=== PATIENT | female | born 1985 | race Caucasian/White ===

== ENCOUNTER 2016-03-23 13:03 | Emergency (ER) | payer MEDICAID | END 2016-03-23 13:05 | disposition left against medical advice (07) | LOC: ER 13:03 | DX: Z53.21 Procedure and treatment not carried out due to patient leaving prior to being seen by health care provider (principal) ==

== ENCOUNTER 2016-05-15 09:39 | Emergency (ER) | payer MEDICAID ==
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
--- NOTE | 2016-05-15 12:52 | EKG REPORT ---
SEVERITY:- NORMAL ECG - SINUS RHYTHM : Confirmed by: Ehsan Hickey MD 15-May-2016 12:51:00
[2016-05-15 13:46] VITALS: BP 106/60
--- NOTE | 2016-05-15 16:46 | PSYCHOLOGICAL NOTE ---
Psych Note - Psych Note Psych Note: The patient is a 31-year-old female, past medical history cocaine and THC abuse , seizures, bipolar, presents by ambulance because she had a brief episode of feeling lightheaded. She said that she has not eaten anything because she did not have access to food for the past 2 days. She was trying to get to [place] and thought that by coming by EMS to [place], she has a better chance of making it to [place]. She denies seizure activity, chest pain, palpitations, syncope, nausea, vomiting, abdominal pain, headache, blurry vision or fevers. Patient states she is not doing well because she is suicidal. When asked what her plan is patient states "I'm thinking about jumping off the bridge." Patient states she is thinking of this because she is homeless and has nowhere to go patient states she's been banned from [facility] because she broke curfew. She further explained she broke curfew by owing out to smoke cigarettes. Patient states that she knew leaving with causes but shows to smoke a cigarette anyway. Patient continued to state that she has been homeless for 3 days because her friend kicked her out. When asked what her friends kicked her out she stated "I guess not picking up after myself." She continued disclosed that she has prior attempts when she was [age] by overdosing on OxyContin. When asked what substances she uses now she states marijuana and crack; last time she smoked was yesterday. When asked how she got money she stated it was "fronted to her." She stated she will not be able to pay for it so "they will just go without getting paid." Clinician provided resource list for shelters patient stated she wanted to go [facility] and requested a cab. Patient is alert and orientated to person place time and circumstance. Mood is euthymic with congruent affect. Patient endorses suicidal ideation stating that she was "thinking about jumping off the bridge" however intense is questionable. Patient denies homicidal ideation. Patient denies auditory and visual hallucinations; no delusions are noted. Thought process is organized and linear. Thought content is focused on secondary gain of seeking custodial. Conversational speech was within normal rate tone and prosody. Eye contact was fair. Intellectual abilities appear to be low average range. Attention and concentration are fair. Insight, judgment, impulse control are poor. 292.9 (F12.99) unspecified cannabis-related disorder 292.9 (F14.99) unspecified stimulant related disorder; cocaine V6 0.0 (Z59.0) homelessness Impression\\plan: Patient is psychiatrically cleared for discharge. Patient is attempting to endorse suicidal ideation however plan identified sitting with patient prior intent is questionable. Patient came in to [facility] with other complaints and disclose she is attempting to [place] he needed a ride such as EMS to [facility] upon learning of possible discharge patient randomly stated to staff member she thinking of killing herself. Patient is chronically homeless and has had long history of substance abuse. When patient was provided resource and transportation to custodial patient wanted to leave. Patient has shown history of choosing homelessness as using to smoke a cigarette instead of staying in homeless shelters. Patient demonstrated coming in to [facility] for secondary gain of custodial. Patient's psychiatric appear for discharge attending physician is in agreement medications and disposition.
== END 2016-05-15 13:48 | disposition home or self-care (01) ==
LOC: ER 09:39
DX: R42 Dizziness and giddiness (principal); F17.210 Nicotine dependence, cigarettes, uncomplicated
CPT/HCPCS: 81025; 82962; 93005; 93010; 99285

== ENCOUNTER 2016-05-15 16:26 | Emergency (ER) | payer MEDICAID ==
[2016-05-15 16:37] VITALS: BP 96/57
== END 2016-05-15 16:45 | disposition left against medical advice (07) ==
LOC: ER 16:26
DX: Z53.9 Procedure and treatment not carried out, unspecified reason (principal); R45.851 Suicidal ideations

== ENCOUNTER 2016-08-14 10:58 | Emergency (ER) | payer MEDICAID, OTHER ==
[2016-08-14 11:03] VITALS: BP 102/65
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
[2016-08-14 12:28] LABS: ALANINE AMINOTRANSFERASE 40 U/L (9-52); ALBUMIN 4.2 g/dL (3.5-5.0); ALKALINE PHOSPHATASE 56 U/L (38-126); ANION GAP 7 (5-19); ASPARTATE AMINO TRANSFERASE 27 U/L (14-36); BILIRUBIN,DIRECT 0.3 mg/dL (0.0-0.4); BILIRUBIN,TOTAL 0.6 mg/dL (0.2-1.3); BLOOD UREA NITROGEN 21 mg/dL (7-20); CALCIUM 9.3 mg/dL (8.4-10.2); CARBON DIOXIDE 29 mmol/L (22-30); CHLORIDE 105 mmol/L (98-107); CREATININE RESULT 0.48 mg/dL (0.52-1.25); GLUCOSE 79 mg/dL (75-110); POTASSIUM 4.6 mmol/L (3.6-5.0); SODIUM 141.4 mmol/L (137-145); TOTAL PROTEIN 7.3 g/dL (6.3-8.2)
[2016-08-14 12:29] LABS: ALCOHOL < 10 mg/dL (NONE DETECTED)
[2016-08-14 12:30] LABS: ABSOLUTE BASOPHILS # (AUTO) 0.1 10^3/uL (0.0-0.2); ABSOLUTE EOSINOPHILS # (AUTO) 0.4 10^3/uL (0.0-0.6); ABSOLUTE LYMPHOCYTES (AUTO) 3.5 10^3/uL (0.5-4.7); BASOPHILS % (AUTO) 1.2 % (0-2); EOSINOPHILS % (AUTO) 4.5 % (0-6); HEMATOCRIT 42.8 % (36.0-47.0); HEMOGLOBIN 14.1 g/dL (12.0-15.5); HGB HCT DIFFERENCE -0.5; LYMPHOCYTES % (AUTO) 34.5 % (13-45); MEAN CORPUSCULAR HEMOGLOBIN 29.6 pg (27.0-33.4); MEAN CORPUSCULAR VOLUME 90 fl (80-97); MONOCYTES % (AUTO) 9.7 % (3-13); RED BLOOD COUNT 4.76 10^6/uL (3.72-5.28); RED CELL DISTRIBUTION WIDTH 13.6 % (11.5-14.0); SEGMENTED NEUTROPHILS % (AUTO) 50.1 % (42-78)
--- NOTE | 2016-08-14 14:24 | PSYCHOLOGICAL NOTE ---
Psych Note - Psych Note Psych Note: Pt presented to ED with suicidal ideation. Pt took 10 tylenol last night in hopes of committing suicide. Pt stated " I planned to take 30 more tylenol and if that didn't work I was going to walk into the street." The pt then stated that "I only said I was going to take that much medication to get a psychiatric evaluation. I am not suicidal anymore." Pt has a hx of bipolar, OCD, ADHD, aspergers, epilepsy and hemophilia. Pt is homeless. Pt is in contact with family. Pt stated that she has been treated for MRSA in the past two years and [facility] and was told that it was in her system. Pt went to [facility] and was deemed suicidal by the socially responsible investment adviser. Staff member brought her to the ER when she found out that she had overdosed on tylenol and because she is not currently on her regular medications. Patient disclosed that she has been trying to "kill herself for the last 30 days." She continued disclosed that she "tried to kill myself by stabbing myself and the heart but then dropped the knife in fear." get my mind might get that patient states that she needs to go inpatient. When clinician explained that she did not meet IVC criteria and that the best course of action for the patient would be receiving therapeutic services or outpatient the patient became angry. She stated that she needed to go inpatient. She was homeless. she continued to state that every time she comes in she never received any assistance. Clinician asked if patient had therapeutic services out in the community, patient denied having outpatient services. Clinician explained that patient needed outpatient services patient refused. Clinician asked how inpatient services would assist the patient if she refused to follow- up with outpatient services after. Patient stated that if she was not going to get inpatient she wants a ride to her friend's house. When it was explained she would not be able to get a ride to her friend's home, the patient became very belligerent and loud, clinician left patient's room. Patient is alert and orientated to person place time and circumstance. Mood is irritable with congruent affect. Patient endorses suicidal ideation providing multiple ways and allegedly attempting multiple ways however intent is questionable. Patient denies homicidal ideation. Patient denies auditory and visual hallucinations; no delusions are noted. Thought process is organized and linear. Thought content is focused on secondary gain of seeking mcc. Conversational speech was within normal rate tone and prosody. Eye contact was fair. Intellectual abilities appear to be low average range. Attention and concentration are fair. Insight, judgment, impulse control are poor. 292.9 (F12.99) unspecified cannabis-related disorder 292.9 (F14.99) unspecified stimulant related disorder; cocaine 292.9 (F11.99) unspecified Opioid-related disorder V6 0.0 (Z59.0) homelessness Impression\\plan: Patient is psychiatrically cleared for discharge. Patient is attempting to endorse suicidal ideation however plan identified, intent is questionable. Patient requested a ride to her friends home when it was explained outpatient services would be most beneficial for her therapeutic needs. Patient is chronically homeless and has had long history of substance abuse. Patient has shown history of choosing homelessness; patient choose to smoke a cigarette instead of staying in homeless shelters after hours and now is not allowed to stay. Patient demonstrated [facility] for secondary gain of mcc. Patient's psychiatrically clear for discharge; attending physician is in agreement medications and disposition.
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
[2016-08-14 14:29] LABS: APPEARANCE,URINE TURBID; BILIRUBIN,URINE NEGATIVE (NEGATIVE); GLUCOSE, URINE NEGATIVE (NEGATIVE); KETONES,URINE NEGATIVE (NEGATIVE); LEUKOCYTE ESTERASE,URINE NEGATIVE (NEGATIVE); NITRITE,URINE NEGATIVE (NEGATIVE); PROTEIN,URINE NEGATIVE (NEGATIVE); URINE SPECIFIC GRAVITY 1.034; UROBILINOGEN,URINE NEGATIVE mg/dL (<2.0)
[2016-08-14 14:47] LABS: URINE BARBITURATES SCREEN NEGATIVE; URINE METHADONE SCREEN NEGATIVE; URINE OPIATES LOW NEGATIVE; URINE PHENCYCLIDINE SCREEN NEGATIVE
--- NOTE | 2016-08-15 10:43 | EKG REPORT ---
SEVERITY:- BORDERLINE ECG - SINUS RHYTHM BORDERLINE T ABNORMALITIES, ANTERIOR LEADS : Confirmed by: Gloria Starr 15-Aug-2016 10:42:20
== END 2016-08-14 14:40 | disposition home or self-care (01) ==
LOC: ER 10:58
DX: F19.20 Other psychoactive substance dependence, uncomplicated (principal); Z59.0 Homelessness; F31.9 Bipolar disorder, unspecified; F42.9 Obsessive-compulsive disorder, unspecified; F90.9 Attention-deficit hyperactivity disorder, unspecified type; F84.5 Asperger's syndrome; G40.909 Epilepsy, unspecified, not intractable, without status epilepticus; F17.200 Nicotine dependence, unspecified, uncomplicated
CPT/HCPCS: 36415; 80053; 80307; 81001; 81025; 85025; 93005; 93010; 99285

== ENCOUNTER 2016-08-26 19:39 | Emergency (ER) | payer SELFPAY ==
[2016-08-26 19:53] VITALS: BP 114/67
== END 2016-08-26 20:00 | disposition left against medical advice (07) ==
LOC: ER 19:39
DX: Z53.9 Procedure and treatment not carried out, unspecified reason (principal); R11.10 Vomiting, unspecified

== ENCOUNTER 2016-08-27 11:01 | Emergency (ER) | payer MEDICAID ==
[2016-08-27 11:11] VITALS: BP 117/73
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
[2016-08-27 11:48] LABS: ABSOLUTE EOSINOPHILS # (AUTO) 0.4 10^3/uL (0.0-0.6); ABSOLUTE LYMPHOCYTES (AUTO) 2.7 10^3/uL (0.5-4.7); ABSOLUTE MONOCYTES (AUTO) 0.7 10^3/uL (0.1-1.4); ABSOLUTE NEUT (AUTO) 3.7 10^3/uL (1.7-8.2); BASOPHILS % (AUTO) 0.6 % (0-2); EOSINOPHILS % (AUTO) 5.6 % (0-6); HEMATOCRIT 43.9 % (36.0-47.0); HEMOGLOBIN 14.5 g/dL (12.0-15.5); HGB HCT DIFFERENCE -0.4; LYMPHOCYTES % (AUTO) 35.7 % (13-45); MEAN CORPUSCULAR HEMOGLOBIN 29.1 pg (27.0-33.4); MEAN CORPUSCULAR HGB CONC 32.9 g/dL (32.0-36.0); MEAN CORPUSCULAR VOLUME 89 fl (80-97); RED BLOOD COUNT 4.96 10^6/uL (3.72-5.28); RED CELL DISTRIBUTION WIDTH 13.5 % (11.5-14.0); SEGMENTED NEUTROPHILS % (AUTO) 49.1 % (42-78); WHITE BLOOD COUNT 7.6 10^3/uL (4.0-10.5)
[2016-08-27 11:54] LABS: APPEARANCE,URINE SLIGHTLY-CLOUDY; BILIRUBIN,URINE NEGATIVE (NEGATIVE); GLUCOSE, URINE NEGATIVE (NEGATIVE); KETONES,URINE NEGATIVE (NEGATIVE); LEUKOCYTE ESTERASE,URINE NEGATIVE (NEGATIVE); NITRITE,URINE NEGATIVE (NEGATIVE); PROTEIN,URINE NEGATIVE (NEGATIVE); URINE SPECIFIC GRAVITY 1.028; UROBILINOGEN,URINE NEGATIVE mg/dL (<2.0)
[2016-08-27 12:00] LABS: ANION GAP 8 (5-19); BLOOD UREA NITROGEN 18 mg/dL (7-20); CALCIUM 8.9 mg/dL (8.4-10.2); CARBON DIOXIDE 29 mmol/L (22-30); CHLORIDE 104 mmol/L (98-107); CREATININE RESULT 0.57 mg/dL (0.52-1.25); GLUCOSE 75 mg/dL (75-110); POTASSIUM 4.2 mmol/L (3.6-5.0); SODIUM 141.4 mmol/L (137-145)
== END 2016-08-27 11:50 | disposition left against medical advice (07) ==
LOC: ER 11:01
DX: R56.9 Unspecified convulsions (principal); Z53.20 Procedure and treatment not carried out because of patient's decision for unspecified reasons; Z88.0 Allergy status to penicillin; Z91.030 Bee allergy status
CPT/HCPCS: 36415; 80048; 81001; 84703; 85025; 99281

== ENCOUNTER 2016-09-07 23:36 | Emergency (ER) | payer MEDICAID ==
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
== END 2016-09-08 02:05 | disposition home or self-care (01) ==
LOC: ER 23:36
DX: S09.90XA Unspecified injury of head, initial encounter (principal); M79.605 Pain in left leg; W19.XXXA Unspecified fall, initial encounter
CPT/HCPCS: 99283

== ENCOUNTER 2016-09-10 04:26 | Emergency (ER) | payer MEDICAID ==
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
[2016-09-10 08:48] VITALS: BP 113/99
== END 2016-09-10 05:32 | disposition home or self-care (01) ==
LOC: ER 04:26
DX: S80.812A Abrasion, left lower leg, initial encounter (principal); M79.605 Pain in left leg; W22.8XXA Striking against or struck by other objects, initial encounter; Y93.11 Activity, swimming; Y92.828 Other wilderness area as the place of occurrence of the external cause; Z59.0 Homelessness; Z86.14 Personal history of Methicillin resistant Staphylococcus aureus infection
CPT/HCPCS: 99283

== ENCOUNTER 2016-09-12 03:02 | Emergency (ER) | payer MEDICAID ==
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
[2016-09-12 05:36] VITALS: BP 120/57
== END 2016-09-12 05:50 | disposition home or self-care (01) ==
LOC: ER 03:02
DX: R10.9 Unspecified abdominal pain (principal); Y08.89XA Assault by other specified means, initial encounter; Y92.59 Other trade areas as the place of occurrence of the external cause; Z88.0 Allergy status to penicillin; Z91.030 Bee allergy status; Z86.14 Personal history of Methicillin resistant Staphylococcus aureus infection
CPT/HCPCS: 81025; 99284

== ENCOUNTER 2016-09-21 06:11 | Emergency (ER) | payer OTHER, MEDICAID ==
[2016-09-21 06:52] LABS: ABSOLUTE BASOPHILS # (AUTO) 0.1 10^3/uL (0.0-0.2); ABSOLUTE EOSINOPHILS # (AUTO) 0.3 10^3/uL (0.0-0.6); ABSOLUTE LYMPHOCYTES (AUTO) 3.6 10^3/uL (0.5-4.7); ABSOLUTE MONOCYTES (AUTO) 0.8 10^3/uL (0.1-1.4); ABSOLUTE NEUT (AUTO) 4.6 10^3/uL (1.7-8.2); BASOPHILS % (AUTO) 0.5 % (0-2); EOSINOPHILS % (AUTO) 3.7 % (0-6); HEMATOCRIT 41.6 % (36.0-47.0); HEMOGLOBIN 13.4 g/dL (12.0-15.5); HGB HCT DIFFERENCE -1.4; LYMPHOCYTES % (AUTO) 38.4 % (13-45); MEAN CORPUSCULAR HEMOGLOBIN 29.2 pg (27.0-33.4); MEAN CORPUSCULAR HGB CONC 32.3 g/dL (32.0-36.0); MEAN CORPUSCULAR VOLUME 91 fl (80-97); MONOCYTES % (AUTO) 8.3 % (3-13); RED BLOOD COUNT 4.59 10^6/uL (3.72-5.28); RED CELL DISTRIBUTION WIDTH 13.3 % (11.5-14.0); SEGMENTED NEUTROPHILS % (AUTO) 49.1 % (42-78); WHITE BLOOD COUNT 9.3 10^3/uL (4.0-10.5)
[2016-09-21 07:04] LABS: ALANINE AMINOTRANSFERASE 31 U/L (9-52); ALBUMIN 4.1 g/dL (3.5-5.0); ALCOHOL < 10 mg/dL (NONE DETECTED); ALKALINE PHOSPHATASE 53 U/L (38-126); ANION GAP 10 (5-19); ASPARTATE AMINO TRANSFERASE 26 U/L (14-36); BILIRUBIN,DIRECT 0.3 mg/dL (0.0-0.4); BILIRUBIN,TOTAL 0.5 mg/dL (0.2-1.3); BLOOD UREA NITROGEN 21 mg/dL (7-20); CALCIUM 8.6 mg/dL (8.4-10.2); CARBON DIOXIDE 25 mmol/L (22-30); CHLORIDE 106 mmol/L (98-107); CREATININE RESULT 0.58 mg/dL (0.52-1.25); GLUCOSE 85 mg/dL (75-110); POTASSIUM 3.7 mmol/L (3.6-5.0); SODIUM 140.8 mmol/L (137-145); TOTAL PROTEIN 6.9 g/dL (6.3-8.2)
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
--- NOTE | 2016-09-21 08:07 | EKG REPORT ---
SEVERITY:- NORMAL ECG - SINUS RHYTHM. : Confirmed by: Ehsan Hickey MD 21-Sep-2016 08:06:48
[2016-09-21 09:24] LABS: APPEARANCE,URINE SLIGHTLY-CLOUDY; BILIRUBIN,URINE NEGATIVE (NEGATIVE); GLUCOSE, URINE NEGATIVE (NEGATIVE); KETONES,URINE NEGATIVE (NEGATIVE); LEUKOCYTE ESTERASE,URINE NEGATIVE (NEGATIVE); NITRITE,URINE NEGATIVE (NEGATIVE); PROTEIN,URINE NEGATIVE (NEGATIVE); URINE SPECIFIC GRAVITY 1.033; UROBILINOGEN,URINE NEGATIVE mg/dL (<2.0)
[2016-09-21 09:48] LABS: URINE BARBITURATES SCREEN NEGATIVE; URINE METHADONE SCREEN NEGATIVE; URINE OPIATES LOW NEGATIVE; URINE PHENCYCLIDINE SCREEN NEGATIVE
--- NOTE | 2016-09-22 07:04 | ER Document Report ---
Doctor's Note Notes: 09/22/16 07:03 Patient is resting quietly on night has not required any additional medication.
--- NOTE | 2016-09-22 08:34 | ER Document Report ---
Doctor's Note Notes: 09/22/16 08:34 Patient seen and evaluated by me. Vital signs reviewed. Patient states she is currently not suicidal. Awaiting mental health recommendations.
--- NOTE | 2016-09-22 10:26 | ER Document Report ---
Doctor's Note Notes: 09/22/16 10:26 Patient was evaluated by mental health. Per the request, patient is to be discharged. Patient was given appropriate discharge resources.
[2016-09-22 10:43] VITALS: BP 118/71
== END 2016-09-22 10:45 | disposition home or self-care (01) ==
LOC: ER 06:11
DX: F31.9 Bipolar disorder, unspecified (principal); Z59.0 Homelessness; F12.20 Cannabis dependence, uncomplicated
CPT/HCPCS: 36415; 80053; 80307; 81001; 84703; 85025; 93005; 93010; 99285

== ENCOUNTER 2016-09-22 22:06 | Emergency (ER) | payer MEDICAID | END 2016-09-22 22:20 | disposition left against medical advice (07) | LOC: ER 22:06 | DX: Z53.21 Procedure and treatment not carried out due to patient leaving prior to being seen by health care provider (principal) ==

== ENCOUNTER 2016-10-05 03:13 | Emergency (ER) | payer MEDICAID, OTHER ==
[2016-10-05 03:25] VITALS: BP 115/65
== END 2016-10-05 03:57 | disposition left against medical advice (07) ==
LOC: ER 03:13
DX: Z53.21 Procedure and treatment not carried out due to patient leaving prior to being seen by health care provider (principal)

== ENCOUNTER 2016-10-17 00:45 | Emergency (ER) | payer MEDICAID ==
[2016-10-17 00:59] VITALS: BP 145/72
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
== END 2016-10-17 06:27 | disposition home or self-care (01) ==
LOC: ER 00:45
DX: Z59.0 Homelessness (principal); F99 Mental disorder, not otherwise specified; Y09 Assault by unspecified means
CPT/HCPCS: 99284

== ENCOUNTER 2016-10-20 00:05 | Emergency (ER) | payer MEDICAID ==
[2016-10-20 00:21] VITALS: BP 115/65
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
== END 2016-10-20 01:03 | disposition home or self-care (01) ==
LOC: ER 00:05
DX: Z59.0 Homelessness (principal); Y08.89XA Assault by other specified means, initial encounter; F17.200 Nicotine dependence, unspecified, uncomplicated; Z88.0 Allergy status to penicillin; Z91.030 Bee allergy status; Z87.820 Personal history of traumatic brain injury; Z86.14 Personal history of Methicillin resistant Staphylococcus aureus infection
CPT/HCPCS: 99283

== ENCOUNTER 2016-10-23 03:54 | Emergency (ER) | payer MEDICAID ==
[2016-10-23 04:07] VITALS: BP 115/69
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
== END 2016-10-23 04:50 | disposition home or self-care (01) ==
LOC: ER 03:54
DX: M79.671 Pain in right foot (principal); S90.821A Blister (nonthermal), right foot, initial encounter; X58.XXXA Exposure to other specified factors, initial encounter
CPT/HCPCS: 99283

== ENCOUNTER 2016-11-22 00:29 | Emergency (ER) | payer SELFPAY ==
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
--- NOTE | 2016-11-22 01:40 | RADIOLOGY REPORT (SQ) ---
EXAM DESCRIPTION: CHEST PA/LAT COMPLETED DATE/TIME: 11/22/2016 12:53 am REASON FOR STUDY: chest pain COMPARISON: Chest x-ray 02/15/2015. EXAM PARAMETERS: NUMBER OF VIEWS: two views TECHNIQUE: Digital Frontal and Lateral radiographic views of the chest acquired. RADIATION DOSE: NA LIMITATIONS: none FINDINGS: LUNGS AND PLEURA: No consolidation, pneumothorax or pleural effusion. MEDIASTINUM AND HILAR STRUCTURES: No masses or contour abnormalities. HEART AND VASCULAR STRUCTURES: Heart normal size. No evidence for failure. BONES: No acute findings. HARDWARE: None in the chest. IMPRESSION: No acute radiographic finding in the chest. TECHNICAL DOCUMENTATION: JOB ID: [id number] 2010 [employer]- All Rights Reserved
[2016-11-22 03:32] VITALS: BP 122/78
--- NOTE | 2016-11-22 07:58 | EKG REPORT ---
SEVERITY:- BORDERLINE ECG - SINUS RHYTHM BORDERLINE T ABNORMALITIES, ANTERIOR LEADS : Confirmed by: Ehsan Hickey MD 22-Nov-2016 07:57:39
== END 2016-11-22 03:30 | disposition home or self-care (01) ==
LOC: ER 00:29
DX: R07.9 Chest pain, unspecified (principal); Z88.0 Allergy status to penicillin; Z91.030 Bee allergy status; Z59.0 Homelessness; Z87.820 Personal history of traumatic brain injury; Z86.14 Personal history of Methicillin resistant Staphylococcus aureus infection
CPT/HCPCS: 71020; 93005; 93010; 99285

== ENCOUNTER 2016-11-22 17:10 | Emergency (ER) | payer SELFPAY ==
[2016-11-22 19:06] LABS: APPEARANCE,URINE SLIGHTLY-CLOUDY; BILIRUBIN,URINE NEGATIVE (NEGATIVE); GLUCOSE, URINE NEGATIVE (NEGATIVE); KETONES,URINE NEGATIVE (NEGATIVE); LEUKOCYTE ESTERASE,URINE NEGATIVE (NEGATIVE); NITRITE,URINE NEGATIVE (NEGATIVE); PROTEIN,URINE NEGATIVE (NEGATIVE); URINE SPECIFIC GRAVITY 1.015; UROBILINOGEN,URINE NEGATIVE mg/dL (<2.0)
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
[2016-11-22 19:40] VITALS: BP 104/56
== END 2016-11-22 19:40 | disposition home or self-care (01) ==
LOC: ER 17:10
DX: N89.8 Other specified noninflammatory disorders of vagina (principal); Z88.0 Allergy status to penicillin; Z91.030 Bee allergy status
CPT/HCPCS: 81001; 81025; 99285

== ENCOUNTER 2016-11-23 02:56 | Emergency (ER) | payer SELFPAY ==
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
[2016-11-23 03:19] VITALS: BP 117/97
== END 2016-11-23 03:12 | disposition home or self-care (01) ==
LOC: ER 02:56
DX: F41.9 Anxiety disorder, unspecified (principal); F32.9 Major depressive disorder, single episode, unspecified
CPT/HCPCS: 99283

== ENCOUNTER 2016-11-25 22:36 | Emergency (ER) | payer SELFPAY ==
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
[2016-11-25 23:23] LABS: ABSOLUTE BASOPHILS # (AUTO) 0.1 10^3/uL (0.0-0.2); ABSOLUTE EOSINOPHILS # (AUTO) 0.5 10^3/uL (0.0-0.6); ABSOLUTE LYMPHOCYTES (AUTO) 3.4 10^3/uL (0.5-4.7); ABSOLUTE MONOCYTES (AUTO) 0.9 10^3/uL (0.1-1.4); BASOPHILS % (AUTO) 0.8 % (0-2); EOSINOPHILS % (AUTO) 5.7 % (0-6); HEMATOCRIT 37.2 % (36.0-47.0); HEMOGLOBIN 12.7 g/dL (12.0-15.5); HGB HCT DIFFERENCE 0.9; LYMPHOCYTES % (AUTO) 38.6 % (13-45); MEAN CORPUSCULAR HEMOGLOBIN 30.4 pg (27.0-33.4); MEAN CORPUSCULAR VOLUME 89 fl (80-97); MONOCYTES % (AUTO) 9.6 % (3-13); RED BLOOD COUNT 4.17 10^6/uL (3.72-5.28); RED CELL DISTRIBUTION WIDTH 13.7 % (11.5-14.0); SEGMENTED NEUTROPHILS % (AUTO) 45.3 % (42-78); WHITE BLOOD COUNT 8.9 10^3/uL (4.0-10.5)
[2016-11-25 23:42] LABS: ALANINE AMINOTRANSFERASE 24 U/L (9-52); ALBUMIN 3.6 g/dL (3.5-5.0); ALKALINE PHOSPHATASE 49 U/L (38-126); ANION GAP 8 (5-19); ASPARTATE AMINO TRANSFERASE 18 U/L (14-36); BILIRUBIN,DIRECT 0.3 mg/dL (0.0-0.4); BILIRUBIN,TOTAL 0.5 mg/dL (0.2-1.3); BLOOD UREA NITROGEN 13 mg/dL (7-20); CALCIUM 8.8 mg/dL (8.4-10.2); CARBON DIOXIDE 27 mmol/L (22-30); CHLORIDE 106 mmol/L (98-107); CREATININE RESULT 0.59 mg/dL (0.52-1.25); GLUCOSE 88 mg/dL (75-110); POTASSIUM 3.9 mmol/L (3.6-5.0); SODIUM 140.7 mmol/L (137-145); TOTAL PROTEIN 5.8 g/dL (6.3-8.2)
[2016-11-25 23:47] LABS: APPEARANCE,URINE SLIGHTLY-CLOUDY; BILIRUBIN,URINE NEGATIVE (NEGATIVE); GLUCOSE, URINE NEGATIVE (NEGATIVE); KETONES,URINE NEGATIVE (NEGATIVE); LEUKOCYTE ESTERASE,URINE NEGATIVE (NEGATIVE); NITRITE,URINE NEGATIVE (NEGATIVE); PROTEIN,URINE NEGATIVE (NEGATIVE); URINE SPECIFIC GRAVITY 1.031
[2016-11-25 23:48] LABS: ALCOHOL < 10 mg/dL (NONE DETECTED)
[2016-11-25 23:59] LABS: URINE BARBITURATES SCREEN NEGATIVE; URINE METHADONE SCREEN NEGATIVE; URINE OPIATES LOW NEGATIVE; URINE PHENCYCLIDINE SCREEN NEGATIVE
--- NOTE | 2016-11-26 10:07 | ER Document Report ---
Doctor's Note Notes: 11/26/16 10:06 Patient resting comfortably on stretcher, reports feeling much better today and safe to go home, the plan is for the wire mill operator to touch base with patient and ensure for appropriate community outreach and then patient will likely be discharged from the emergency room, chart was reviewed including lab values and vital signs and patient remained stable for discharge once cleared by mental health team Discharge - Discharge Clinical Impression: Depression, Suicidal ideation Condition: Stable Disposition: HOME, SELF-CARE Additional Instructions: DEPRESSION: Your evaluation reveals that you have mental depression. While symptoms may be vague, they often include disturbance of sleep, fatigue, loss of appetite , and general loss of interest in life. While depression may be a side effect of drugs, or a reaction to a major change in your life, many cases have no known cause. If depression is acute, and related to a major loss in your life, you can expect it to clear completely with time. If you have been depressed a long time , are prone to repeated bouts of depression or low mood, or have been thinking of suicide, get help. Depression can be treated with anti-depressant medication and counselling. Long-term depression will often take a few weeks to clear, even with appropriate medication. Follow-up care is important. SUICIDAL IDEATION: Suicidal ideation is a common medical term for thoughts about suicide, which may be as detailed as a formulated plan, without the suicidal act itself. Although most people who undergo suicidal ideation do not commit suicide, some go on to make suicide attempts. The range of suicidal ideation varies greatly from fleeting to detailed planning, role playing, and unsuccessful attempts. While thoughts about suicide are common, most people do not carry out serious actions to commit suicide. Based upon your evaluation and discussion with you, we do not believe you are currently at risk to act upon your thoughts of suicide. You have agreed to return to the Emergency Department, at any time , if you feel inclined to act upon your suicidal thoughts. FOLLOW-UP CARE: You have been instructed to follow up with [facility] or [facility] as a walk in. If you experience worsening or a significant change in your symptoms, notify the physician immediately or return to the Emergency Department at any time for re-evaluation. Referrals: [facility] [Provider Group] - Follow up in 3-5 days
--- NOTE | 2016-11-26 10:14 | EKG REPORT ---
SEVERITY:- BORDERLINE ECG - SINUS RHYTHM BORDERLINE T ABNORMALITIES, ANTERIOR LEADS : Confirmed by: Gloria Starr 26-Nov-2016 10:13:08
[2016-11-26 11:45] VITALS: BP 117/68
== END 2016-11-26 11:57 | disposition home or self-care (01) ==
LOC: ER 22:36
DX: R45.851 Suicidal ideations (principal); F32.9 Major depressive disorder, single episode, unspecified; F31.9 Bipolar disorder, unspecified; F17.200 Nicotine dependence, unspecified, uncomplicated
CPT/HCPCS: 36415; 80053; 80307; 81001; 84703; 85025; 93005; 93010; 99285

== ENCOUNTER 2016-11-27 01:17 | Emergency (ER) | payer SELFPAY ==
[2016-11-27 02:11] VITALS: BP 110/74
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
== END 2016-11-27 06:53 | disposition home or self-care (01) ==
LOC: ER 01:17
DX: F41.9 Anxiety disorder, unspecified (principal); F43.9 Reaction to severe stress, unspecified; F17.210 Nicotine dependence, cigarettes, uncomplicated
CPT/HCPCS: 99284

== ENCOUNTER 2016-12-02 22:03 | Emergency (ER) | payer SELFPAY | END 2016-12-02 22:15 | disposition left against medical advice (07) | LOC: ER 22:03 | DX: Z53.9 Procedure and treatment not carried out, unspecified reason (principal); R42 Dizziness and giddiness ==

== ENCOUNTER 2016-12-03 14:42 | Emergency (ER) | payer SELFPAY ==
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
[2016-12-03 15:30] VITALS: BP 119/74
== END 2016-12-03 15:31 | disposition home or self-care (01) ==
LOC: ER 14:42
DX: R11.2 Nausea with vomiting, unspecified (principal); F17.210 Nicotine dependence, cigarettes, uncomplicated; Z88.0 Allergy status to penicillin; Z87.892 Personal history of anaphylaxis; Z91.030 Bee allergy status; Z86.14 Personal history of Methicillin resistant Staphylococcus aureus infection
CPT/HCPCS: 99284

== ENCOUNTER 2016-12-08 16:03 | Emergency (ER) | payer SELFPAY ==
[2016-12-08 16:37] VITALS: BP 115/77
--- NOTE | 2016-12-08 20:05 | RADIOLOGY REPORT (SQ) ---
EXAM DESCRIPTION: CHEST PA/LAT COMPLETED DATE/TIME: 12/08/2016 7:17 pm REASON FOR STUDY: cough/congestion COMPARISON: 11/22/2016 EXAM PARAMETERS: NUMBER OF VIEWS: two views TECHNIQUE: Digital Frontal and Lateral radiographic views of the chest acquired. RADIATION DOSE: NA LIMITATIONS: none FINDINGS: LUNGS AND PLEURA: No opacities, masses or pneumothorax. No pleural effusion. MEDIASTINUM AND HILAR STRUCTURES: No masses or contour abnormalities. HEART AND VASCULAR STRUCTURES: Heart normal size. No evidence for failure. BONES: No acute findings. HARDWARE: None in the chest. OTHER: No other significant finding. IMPRESSION: NO SIGNIFICANT RADIOGRAPHIC FINDING IN THE CHEST. TECHNICAL DOCUMENTATION: JOB ID: [id number] [employer]- All Rights Reserved
[2016-12-08 20:19] LABS: APPEARANCE,URINE SLIGHTLY-CLOUDY; BILIRUBIN,URINE NEGATIVE (NEGATIVE); GLUCOSE, URINE NEGATIVE (NEGATIVE); KETONES,URINE NEGATIVE (NEGATIVE); LEUKOCYTE ESTERASE,URINE TRACE (NEGATIVE); NITRITE,URINE NEGATIVE (NEGATIVE); PROTEIN,URINE NEGATIVE (NEGATIVE)
[2016-12-08] MEDS ORDERED: AZITHROMYCIN 250 MG TABLET PO ONE (20:28)
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
== END 2016-12-08 20:50 | disposition home or self-care (01) ==
LOC: ER 16:03
DX: J06.9 Acute upper respiratory infection, unspecified (principal); R05 Cough; R53.1 Weakness; R53.81 Other malaise; R51 Headache; Z86.14 Personal history of Methicillin resistant Staphylococcus aureus infection; Z87.01 Personal history of pneumonia (recurrent); Z87.891 Personal history of nicotine dependence; Z88.0 Allergy status to penicillin; Z91.030 Bee allergy status
CPT/HCPCS: 71020; 81001; 81025; 99284

== ENCOUNTER 2016-12-10 19:13 | Emergency (ER) | payer MEDICAID ==
[2016-12-10 20:06] VITALS: BP 131/84
== END 2016-12-11 00:26 | disposition left against medical advice (07) ==
LOC: ER 19:13
DX: Z53.9 Procedure and treatment not carried out, unspecified reason (principal)

== ENCOUNTER 2016-12-14 04:36 | Emergency (ER) | payer MEDICAID ==
[2016-12-14 04:50] VITALS: BP 118/65
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
[2016-12-14 06:00] LABS: APPEARANCE,URINE SLIGHTLY-CLOUDY; BILIRUBIN,URINE NEGATIVE (NEGATIVE); GLUCOSE, URINE NEGATIVE (NEGATIVE); KETONES,URINE TRACE mg/dL (NEGATIVE); LEUKOCYTE ESTERASE,URINE SMALL (NEGATIVE); NITRITE,URINE NEGATIVE (NEGATIVE); PROTEIN,URINE 30 mg/dL (NEGATIVE); URINE SPECIFIC GRAVITY 1.033
[2016-12-14 06:05] LABS: BACTERIA,URINE 1+ /HPF
[2016-12-14] MEDS ORDERED: NITROFURANTOIN MONOHYD/M-CRYST 100 MG CAPSULE PO ONE (06:11)
== END 2016-12-14 06:42 | disposition home or self-care (01) ==
LOC: ER 04:36
DX: T63.421A Toxic effect of venom of ants, accidental (unintentional), initial encounter (principal); W57.XXXA Bitten or stung by nonvenomous insect and other nonvenomous arthropods, initial encounter; N39.0 Urinary tract infection, site not specified; Z86.14 Personal history of Methicillin resistant Staphylococcus aureus infection; Z59.0 Homelessness; F17.200 Nicotine dependence, unspecified, uncomplicated
CPT/HCPCS: 99283; 87086; 87088; 81001; J3490; J8499

== ENCOUNTER 2016-12-25 00:31 | Emergency (ER) | payer MEDICAID ==
[2016-12-25 01:02] VITALS: BP 129/86
[2016-12-25] MEDS ORDERED: IBUPROFEN 800 MG TABLET PO ONE (02:11)
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
[2016-12-25] MEDS ORDERED: GUAIFENESIN/D-METHORPHAN (200-20 MG) SYRUP 10 ML PO ONE (04:35)
== END 2016-12-25 04:48 | disposition home or self-care (01) ==
LOC: ER 00:31
DX: R51 Headache (principal); J34.89 Other specified disorders of nose and nasal sinuses; Y04.0XXA Assault by unarmed brawl or fight, initial encounter; F17.200 Nicotine dependence, unspecified, uncomplicated; Z88.0 Allergy status to penicillin; Z91.030 Bee allergy status; Z86.14 Personal history of Methicillin resistant Staphylococcus aureus infection
CPT/HCPCS: 99284; 70150; J3490 ×2

== ENCOUNTER 2016-12-26 01:10 | Emergency (ER) | payer MEDICAID ==
[2016-12-26 01:36] VITALS: BP 106/60
[2016-12-26] MEDS ORDERED: IBUPROFEN 800 MG TABLET PO ONE (02:47)
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
[2016-12-26 03:24] LABS: APPEARANCE,URINE SLIGHTLY-CLOUDY; BILIRUBIN,URINE NEGATIVE (NEGATIVE); GLUCOSE, URINE NEGATIVE (NEGATIVE); KETONES,URINE NEGATIVE (NEGATIVE); LEUKOCYTE ESTERASE,URINE TRACE (NEGATIVE); NITRITE,URINE NEGATIVE (NEGATIVE); PROTEIN,URINE NEGATIVE (NEGATIVE); UROBILINOGEN,URINE NEGATIVE mg/dL (<2.0)
== END 2016-12-26 03:35 | disposition home or self-care (01) ==
LOC: ER 01:10
DX: N94.10 Unspecified dyspareunia (principal); R10.2 Pelvic and perineal pain; Z88.0 Allergy status to penicillin; Z87.892 Personal history of anaphylaxis; Z91.030 Bee allergy status; Z87.42 Personal history of other diseases of the female genital tract; Z86.14 Personal history of Methicillin resistant Staphylococcus aureus infection
CPT/HCPCS: 99284; 81025; 81001; J3490

== ENCOUNTER 2017-01-24 19:17 | Emergency (ER) | payer MEDICAID ==
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
[2017-01-24] MEDS ORDERED: ACETAMINOPHEN 325 MG TABLET PO ONE (23:42)
[2017-01-25 00:47] LABS: HEMATOCRIT 36.9 % (36.0-47.0); HEMOGLOBIN 12.6 g/dL (12.0-15.5); HGB HCT DIFFERENCE 0.9; MEAN CORPUSCULAR HEMOGLOBIN 29.9 pg (27.0-33.4); MEAN CORPUSCULAR HGB CONC 34.2 g/dL (32.0-36.0); MEAN CORPUSCULAR VOLUME 87 fl (80-97); RED BLOOD COUNT 4.22 10^6/uL (3.72-5.28); RED CELL DISTRIBUTION WIDTH 13.6 % (11.5-14.0); WHITE BLOOD COUNT 9.4 10^3/uL (4.0-10.5)
[2017-01-25 00:58] LABS: BASOPHILS % (MANUAL) 0 % (0-2); EOSINOPHILS % (MANUAL) 2 % (0-6); LYMPHOCYTES % (MANUAL) 43 % (13-45); TOTAL CELLS COUNTED 100
--- NOTE | 2017-01-25 01:02 | RADIOLOGY REPORT (SQ) ---
EXAM DESCRIPTION: FOOT LEFT COMPLETE COMPLETED DATE/TIME: 01/25/2017 12:42 am REASON FOR STUDY: foot swelling . Multiple falls. COMPARISON: Left foot x-ray 01/20/2017. NUMBER OF VIEWS: Three views. TECHNIQUE: AP, lateral and oblique radiographic images acquired of the left foot. LIMITATIONS: None. FINDINGS: MINERALIZATION: Normal. BONES: No acute fracture or dislocation. SOFT TISSUES: There is soft tissue swelling along the dorsum of the foot. No radiopaque foreign body . IMPRESSION: Soft tissue swelling. No radiographic evidence of acute fracture. TECHNICAL DOCUMENTATION: JOB ID: [id number] [employer]- All Rights Reserved
[2017-01-25 01:03] LABS: OVALOCYTES SLIGHT; POIKILOCYTOSIS SLIGHT; TOXIC VACUOLATION PRESENT
[2017-01-25 08:58] VITALS: BP 112/59
--- NOTE | 2017-01-25 10:23 | XCELERA REPORT ---
[address] [address] Lower Extremity Venous Evaluation Name: ELIDIA ADAMS Age: 31 yrs Gender: Female : 1985 Patient Status: Emergency Patient Location: ER Study Date: 01/25/2017 08:24 AM Procedure: Color flow and duplex imaging of the veins of the left lower extremity as well as the right Common Femoral vein. Reason For Study: left leg swelling Ordering Physician: ANGELO VILLARREAL Performed By: Annette Nicolas Left Sided Venous Evaluation Normal vessel filling wall to wall, compression and augmentation as well as Colour flow down to the infrageniculate veins. Interpretation Summary No duplex evidence of DVT or obstruction in the left lower extremity nor in the right Common Femoral vein. : ANGELO VILLARREAL > Yan Chinchilla
== END 2017-01-25 08:57 | disposition home or self-care (01) ==
LOC: ER 19:17
DX: S99.922D Unspecified injury of left foot, subsequent encounter (principal); N93.8 Other specified abnormal uterine and vaginal bleeding; R10.30 Lower abdominal pain, unspecified; M79.89 Other specified soft tissue disorders; X58.XXXD Exposure to other specified factors, subsequent encounter
CPT/HCPCS: 99285; 36415; 84703; 85025; 93971 ×2; 73630; J3490

== ENCOUNTER 2017-02-01 22:37 | Emergency (ER) | payer MEDICAID | END 2017-02-01 22:40 | disposition left against medical advice (07) | LOC: ER 22:37 | DX: Z53.21 Procedure and treatment not carried out due to patient leaving prior to being seen by health care provider (principal) ==

== ENCOUNTER 2017-02-04 22:09 | Emergency (ER) | payer MEDICAID | END 2017-02-04 23:25 | disposition left against medical advice (07) | LOC: ER 22:09 | DX: Z53.9 Procedure and treatment not carried out, unspecified reason (principal); R21 Rash and other nonspecific skin eruption ==

== ENCOUNTER 2017-02-08 19:11 | Emergency (ER) | payer MEDICAID | END 2017-02-08 19:55 | disposition left against medical advice (07) | LOC: ER 19:11 | DX: Z53.9 Procedure and treatment not carried out, unspecified reason (principal); M25.579 Pain in unspecified ankle and joints of unspecified foot ==

== ENCOUNTER 2017-02-27 14:31 | Emergency (ER) | payer MEDICAID ==
[2017-02-27 14:41] VITALS: BP 98/52
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
== END 2017-02-27 14:50 | disposition home or self-care (01) ==
LOC: ER 14:31
DX: S09.90XA Unspecified injury of head, initial encounter (principal); W19.XXXA Unspecified fall, initial encounter; Y92.480 Sidewalk as the place of occurrence of the external cause; F17.210 Nicotine dependence, cigarettes, uncomplicated; Z88.0 Allergy status to penicillin; Z87.892 Personal history of anaphylaxis; Z91.030 Bee allergy status; Z86.14 Personal history of Methicillin resistant Staphylococcus aureus infection
CPT/HCPCS: 99283

== ENCOUNTER 2017-03-17 18:25 | Emergency (ER) | payer MEDICAID ==
[2017-03-17 18:43] VITALS: BP 106/65
== END 2017-03-17 19:10 | disposition left against medical advice (07) ==
LOC: ER 18:25
DX: Z53.21 Procedure and treatment not carried out due to patient leaving prior to being seen by health care provider (principal)

== ENCOUNTER 2017-03-29 22:35 | Emergency (ER) | payer SELFPAY ==
[2017-03-29 23:00] VITALS: BP 112/55
[2017-03-30 01:12] LABS: ABSOLUTE BASOPHILS # (AUTO) 0.1 10^3/uL (0.0-0.2); ABSOLUTE EOSINOPHILS # (AUTO) 0.3 10^3/uL (0.0-0.6); ABSOLUTE LYMPHOCYTES (AUTO) 3.5 10^3/uL (0.5-4.7); ABSOLUTE MONOCYTES (AUTO) 0.9 10^3/uL (0.1-1.4); ABSOLUTE NEUT (AUTO) 5.6 10^3/uL (1.7-8.2); BASOPHILS % (AUTO) 1.1 % (0-2); EOSINOPHILS % (AUTO) 3.3 % (0-6); HEMATOCRIT 44.1 % (36.0-47.0); HEMOGLOBIN 14.7 g/dL (12.0-15.5); LYMPHOCYTES % (AUTO) 33.4 % (13-45); MEAN CORPUSCULAR HEMOGLOBIN 29.4 pg (27.0-33.4); MEAN CORPUSCULAR HGB CONC 33.4 g/dL (32.0-36.0); MEAN CORPUSCULAR VOLUME 88 fl (80-97); MONOCYTES % (AUTO) 8.4 % (3-13); PLATELET COUNT 165 10^3/uL (150-450); RED BLOOD COUNT 5.02 10^6/uL (3.72-5.28); RED CELL DISTRIBUTION WIDTH 13.9 % (11.5-14.0); SEGMENTED NEUTROPHILS % (AUTO) 53.8 % (42-78); TOTAL CELLS COUNTED % (AUTO) 100 %; WHITE BLOOD COUNT 10.4 10^3/uL (4.0-10.5)
[2017-03-30 01:28] LABS: ALANINE AMINOTRANSFERASE 24 U/L (9-52); ALBUMIN 4.4 g/dL (3.5-5.0); ALKALINE PHOSPHATASE 52 U/L (38-126); ANION GAP 11 (5-19); ASPARTATE AMINO TRANSFERASE 21 U/L (14-36); BILIRUBIN,DIRECT 0.3 mg/dL (0.0-0.4); BILIRUBIN,TOTAL 0.4 mg/dL (0.2-1.3); BLOOD UREA NITROGEN 15 mg/dL (7-20); CALCIUM 9.3 mg/dL (8.4-10.2); CARBON DIOXIDE 28 mmol/L (22-30); CHLORIDE 104 mmol/L (98-107); GLUCOSE 103 mg/dL (75-110); SODIUM 143.3 mmol/L (137-145); TOTAL PROTEIN 6.9 g/dL (6.3-8.2)
[2017-03-30 01:32] LABS: AMORPHOUS SEDIMENT,URINE TRACE /HPF; APPEARANCE,URINE TURBID; BILIRUBIN,URINE NEGATIVE (NEGATIVE); GLUCOSE, URINE NEGATIVE (NEGATIVE); KETONES,URINE NEGATIVE (NEGATIVE); LEUKOCYTE ESTERASE,URINE NEGATIVE (NEGATIVE); NITRITE,URINE NEGATIVE (NEGATIVE); PROTEIN,URINE NEGATIVE (NEGATIVE); URINE SPECIFIC GRAVITY 1.038
[2017-03-30 01:38] LABS: COLOR,URINE LIGHT YELLOW
[2017-03-30 03:30] LABS: URINE AMPHETAMINES SCREEN NEGATIVE; URINE BARBITURATES SCREEN NEGATIVE; URINE BENZODIAZEPINES SCREEN NEGATIVE; URINE COCAINE SCREEN UNCONFIRMED POSITIVE; URINE MARIJUANA (THC) SCREEN UNCONFIRMED POSITIVE; URINE METHADONE SCREEN NEGATIVE; URINE PHENCYCLIDINE SCREEN NEGATIVE
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
== END 2017-03-30 04:49 | disposition home or self-care (01) ==
LOC: ER 22:35
DX: R42 Dizziness and giddiness (principal); Z32.02 Encounter for pregnancy test, result negative; F17.200 Nicotine dependence, unspecified, uncomplicated
CPT/HCPCS: 36415; 80053; 80307; 81001; 81025; 85025; 99284

== ENCOUNTER 2017-06-30 01:50 | Emergency (ER) | payer MEDICAID ==
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
[2017-06-30 02:24] LABS: ABSOLUTE BASOPHILS # (AUTO) 0.1 10^3/uL (0.0-0.2); ABSOLUTE EOSINOPHILS # (AUTO) 0.6 10^3/uL (0.0-0.6); ABSOLUTE LYMPHOCYTES (AUTO) 3.7 10^3/uL (0.5-4.7); ABSOLUTE MONOCYTES (AUTO) 1.2 10^3/uL (0.1-1.4); ABSOLUTE NEUT (AUTO) 5.6 10^3/uL (1.7-8.2); BASOPHILS % (AUTO) 0.7 % (0-2); EOSINOPHILS % (AUTO) 5.5 % (0-6); HEMATOCRIT 38.8 % (36.0-47.0); HEMOGLOBIN 12.9 g/dL (12.0-15.5); MEAN CORPUSCULAR HEMOGLOBIN 29.3 pg (27.0-33.4); MEAN CORPUSCULAR HGB CONC 33.3 g/dL (32.0-36.0); MEAN CORPUSCULAR VOLUME 88 fl (80-97); MONOCYTES % (AUTO) 10.5 % (3-13); PLATELET COUNT 159 10^3/uL (150-450); RED BLOOD COUNT 4.41 10^6/uL (3.72-5.28); RED CELL DISTRIBUTION WIDTH 13.5 % (11.5-14.0); SEGMENTED NEUTROPHILS % (AUTO) 50.3 % (42-78); TOTAL CELLS COUNTED % (AUTO) 100 %; WHITE BLOOD COUNT 11.2 10^3/uL (4.0-10.5)
[2017-06-30 02:34] LABS: ALANINE AMINOTRANSFERASE 35 U/L (9-52); ALBUMIN 4.1 g/dL (3.5-5.0); ALKALINE PHOSPHATASE 52 U/L (38-126); ANION GAP 9 (5-19); ASPARTATE AMINO TRANSFERASE 20 U/L (14-36); BILIRUBIN,DIRECT 0.3 mg/dL (0.0-0.4); BILIRUBIN,TOTAL 0.3 mg/dL (0.2-1.3); BLOOD UREA NITROGEN 19 mg/dL (7-20); CARBON DIOXIDE 31 mmol/L (22-30); CHLORIDE 102 mmol/L (98-107); GLUCOSE 93 mg/dL (75-110); POTASSIUM 3.5 mmol/L (3.6-5.0); SODIUM 141.5 mmol/L (137-145); TOTAL PROTEIN 6.6 g/dL (6.3-8.2)
[2017-06-30 02:37] LABS: ACETAMINOPHEN < 10 ug/mL (10-30); ALCOHOL < 10 mg/dL (NONE DETECTED); SALICYLATE < 1.0 mg/dL (2.0-20.0)
[2017-06-30 02:42] LABS: APPEARANCE,URINE SLIGHTLY-CLOUDY; BILIRUBIN,URINE NEGATIVE (NEGATIVE); COLOR,URINE YELLOW; GLUCOSE, URINE NEGATIVE (NEGATIVE); KETONES,URINE NEGATIVE (NEGATIVE); LEUKOCYTE ESTERASE,URINE NEGATIVE (NEGATIVE); NITRITE,URINE NEGATIVE (NEGATIVE); PROTEIN,URINE NEGATIVE (NEGATIVE); URINE SPECIFIC GRAVITY 1.026; UROBILINOGEN,URINE NEGATIVE mg/dL (<2.0)
[2017-06-30 02:55] LABS: URINE AMPHETAMINES SCREEN NEGATIVE; URINE BARBITURATES SCREEN NEGATIVE; URINE BENZODIAZEPINES SCREEN NEGATIVE; URINE COCAINE SCREEN NEGATIVE; URINE MARIJUANA (THC) SCREEN UNCONFIRMED POSITIVE; URINE METHADONE SCREEN NEGATIVE; URINE PHENCYCLIDINE SCREEN NEGATIVE
--- NOTE | 2017-06-30 09:41 | EKG REPORT ---
SEVERITY:- NORMAL ECG - SINUS RHYTHM : Confirmed by: Gloria Starr 30-Jun-2017 09:41:15
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
[2017-06-30 11:03] VITALS: BP 107/68
== END 2017-06-30 11:20 | disposition home or self-care (01) ==
LOC: ER 01:50
DX: R45.851 Suicidal ideations (principal); F17.200 Nicotine dependence, unspecified, uncomplicated; F12.10 Cannabis abuse, uncomplicated; Z59.0 Homelessness; Z88.0 Allergy status to penicillin; Z91.013 Allergy to seafood
CPT/HCPCS: 36415; 80053; 80307; 81001; 84703; 85025; 93005; 93010; 99285

== ENCOUNTER 2017-07-05 05:08 | Emergency (ER) | payer MEDICAID ==
[2017-07-05 05:18] VITALS: BP 97/54
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
== END 2017-07-05 05:45 | disposition home or self-care (01) ==
LOC: ER 05:08
DX: R45.851 Suicidal ideations (principal); Z59.0 Homelessness; Z88.0 Allergy status to penicillin; Z87.892 Personal history of anaphylaxis; Z91.030 Bee allergy status
CPT/HCPCS: 99284

== ENCOUNTER 2017-08-15 21:29 | Emergency (ER) | payer OTHER, MEDICAID ==
[2017-08-15 22:11] VITALS: BP 117/64
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
== END 2017-08-16 00:42 | disposition home or self-care (01) ==
LOC: ER 21:29
DX: S42.022A Displaced fracture of shaft of left clavicle, initial encounter for closed fracture (principal); M25.512 Pain in left shoulder; V89.2XXA Person injured in unspecified motor-vehicle accident, traffic, initial encounter; Z88.0 Allergy status to penicillin; Z91.030 Bee allergy status; Z86.14 Personal history of Methicillin resistant Staphylococcus aureus infection; Z87.820 Personal history of traumatic brain injury
CPT/HCPCS: 99283

== ENCOUNTER 2017-08-22 16:31 | Emergency (ER) | payer OTHER, MEDICAID ==
[2017-08-22] MEDS ORDERED: SULFAMETHOXAZOLE/TRIMETHOPRIM 800-160 MG TABLET PO ONE (17:07)
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
[2017-08-22] MEDS ORDERED: CEPHALEXIN 500 MG CAPSULE PO ONE (17:12)
[2017-08-22 17:48] VITALS: BP 120/82
== END 2017-08-22 17:48 | disposition home or self-care (01) ==
LOC: ER 16:31
DX: S81.011D Laceration without foreign body, right knee, subsequent encounter (principal); L03.115 Cellulitis of right lower limb; S91.311D Laceration without foreign body, right foot, subsequent encounter; S42.002D Fracture of unspecified part of left clavicle, subsequent encounter for fracture with routine healing; V49.9XXD Car occupant (driver) (passenger) injured in unspecified traffic accident, subsequent encounter; T81.33XA Disruption of traumatic injury wound repair, initial encounter; Y83.8 Other surgical procedures as the cause of abnormal reaction of the patient, or of later complication, without mention of misadventure at the time of the procedure; Z91.19 Patient's noncompliance with other medical treatment and regimen; Z88.0 Allergy status to penicillin; Z86.14 Personal history of Methicillin resistant Staphylococcus aureus infection
CPT/HCPCS: 99283; L3650

== ENCOUNTER 2018-03-07 22:59 | Emergency (ER) | payer MEDICAID ==
[2018-03-07 23:03] VITALS: BP 102/59
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
== END 2018-03-08 01:00 | disposition home or self-care (01) ==
LOC: ER 22:59
DX: R20.9 Unspecified disturbances of skin sensation (principal); T69.9XXA Effect of reduced temperature, unspecified, initial encounter; Z59.0 Homelessness; F90.9 Attention-deficit hyperactivity disorder, unspecified type; F31.9 Bipolar disorder, unspecified; F42.9 Obsessive-compulsive disorder, unspecified; F84.5 Asperger's syndrome; X31.XXXA Exposure to excessive natural cold, initial encounter
CPT/HCPCS: 99283

== ENCOUNTER 2018-03-11 02:28 | Emergency (ER) | payer MEDICAID ==
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
[2018-03-11 03:30] LABS: ABSOLUTE BASOPHILS # (AUTO) 0.1 10^3/uL (0.0-0.2); ABSOLUTE EOSINOPHILS # (AUTO) 0.3 10^3/uL (0.0-0.6); ABSOLUTE LYMPHOCYTES (AUTO) 2.2 10^3/uL (0.5-4.7); ABSOLUTE NEUT (AUTO) 7.3 10^3/uL (1.7-8.2); BASOPHILS % (AUTO) 0.6 % (0-2); EOSINOPHILS % (AUTO) 2.7 % (0-6); HEMOGLOBIN 12.1 g/dL (12.0-15.5); LYMPHOCYTES % (AUTO) 20.4 % (13-45); MEAN CORPUSCULAR HGB CONC 33.6 g/dL (32.0-36.0); MEAN CORPUSCULAR VOLUME 90 fl (80-97); PLATELET COUNT 114 10^3/uL (150-450); RED BLOOD COUNT 4.02 10^6/uL (3.72-5.28); RED CELL DISTRIBUTION WIDTH 13.5 % (11.5-14.0); SEGMENTED NEUTROPHILS % (AUTO) 67.3 % (42-78); TOTAL CELLS COUNTED % (AUTO) 100 %; WHITE BLOOD COUNT 10.8 10^3/uL (4.0-10.5)
[2018-03-11 03:59] LABS: ACETAMINOPHEN < 10 ug/mL (10-30); ALANINE AMINOTRANSFERASE 18 U/L (9-52); ALBUMIN 3.1 g/dL (3.5-5.0); ALCOHOL < 10 mg/dL (NONE DETECTED); ALKALINE PHOSPHATASE 51 U/L (38-126); ANION GAP 8 (5-19); ASPARTATE AMINO TRANSFERASE 15 U/L (14-36); BILIRUBIN,DIRECT 0.1 mg/dL (0.0-0.4); BILIRUBIN,TOTAL 0.3 mg/dL (0.2-1.3); BLOOD UREA NITROGEN 16 mg/dL (7-20); CALCIUM 7.6 mg/dL (8.4-10.2); CARBON DIOXIDE 27 mmol/L (22-30); CHLORIDE 107 mmol/L (98-107); GLUCOSE 106 mg/dL (75-110); POTASSIUM 3.9 mmol/L (3.6-5.0); SALICYLATE < 1.0 mg/dL (2.0-20.0); SODIUM 141.7 mmol/L (137-145); TOTAL PROTEIN 5.2 g/dL (6.3-8.2)
[2018-03-11 06:22] LABS: APPEARANCE,URINE SLIGHTLY-CLOUDY; BILIRUBIN,URINE NEGATIVE (NEGATIVE); COLOR,URINE YELLOW; GLUCOSE, URINE NEGATIVE (NEGATIVE); KETONES,URINE NEGATIVE (NEGATIVE); LEUKOCYTE ESTERASE,URINE NEGATIVE (NEGATIVE); NITRITE,URINE NEGATIVE (NEGATIVE); PROTEIN,URINE NEGATIVE (NEGATIVE); URINE SPECIFIC GRAVITY 1.029
[2018-03-11 06:40] LABS: URINE AMPHETAMINES SCREEN NEGATIVE; URINE BARBITURATES SCREEN NEGATIVE; URINE BENZODIAZEPINES SCREEN NEGATIVE; URINE COCAINE SCREEN NEGATIVE; URINE MARIJUANA (THC) SCREEN UNCONFIRMED POSITIVE; URINE METHADONE SCREEN NEGATIVE; URINE PHENCYCLIDINE SCREEN NEGATIVE
--- NOTE | 2018-03-11 09:26 | ER Document Report ---
Doctor's Note Notes: 03/11/18 09:24 32-year-old female with past history of depression and bipolar disorder who supposedly was having some suicidal ideation secondary to new life stressors of her friend being incarcerated. Patient had an attempt in the past by overdose. She had a plan to possibly jump off a bridge. Patient is currently homeless. Labs and vital signs as recorded. Awaiting psychiatric/psychology evaluation.
--- NOTE | 2018-03-11 14:51 | EKG REPORT ---
SEVERITY:- NORMAL ECG - SINUS RHYTHM : Confirmed by: Gloria tSarr 11-Mar-2018 14:51:18
--- NOTE | 2018-03-12 09:38 | ER Document Report ---
Doctor's Note Notes: Patient seen and evaluated by myself. Patient is a 32-year-old female who presents emergency department with complaints of depression and suicidal ideation. She does have a history of depression, PTSD, bipolar disorder. No issues overnight per nursing. Patient's vital signs are stable. Patient denies any current suicidal ideations this morning. She states that she is feeling much better. Awaiting behavioral health recommendations. 03/12/18 16:38 Behavioral health evaluated the patient. They feel comfortable with the patient being discharged home. Patient denies any suicidal ideations at this time. We will provide the patient with appropriate follow-up.
[2018-03-12 16:50] VITALS: BP 115/77
== END 2018-03-12 16:43 | disposition home or self-care (01) ==
LOC: ER 02:28
DX: R45.851 Suicidal ideations (principal); Z59.0 Homelessness; F17.210 Nicotine dependence, cigarettes, uncomplicated; Z88.0 Allergy status to penicillin; Z86.14 Personal history of Methicillin resistant Staphylococcus aureus infection
CPT/HCPCS: 36415; 80053; 80307; 81001; 84703; 85025; 93005; 93010; 99285

== ENCOUNTER 2018-03-20 04:37 | Emergency (ER) | payer MEDICAID ==
[2018-03-20] MEDS ORDERED: ONDANSETRON 4 MG TAB.RAPDIS PO ONE (05:18)
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
[2018-03-20] MEDS ORDERED: NORMAL SALINE 1000 ML 1,000 ML IV ONE (06:07)
[2018-03-20 07:14] LABS: ALANINE AMINOTRANSFERASE 44 U/L (9-52); ALBUMIN 3.6 g/dL (3.5-5.0); ALKALINE PHOSPHATASE 51 U/L (38-126); ANION GAP 6 (5-19); ASPARTATE AMINO TRANSFERASE 26 U/L (14-36); BILIRUBIN,DIRECT 0.2 mg/dL (0.0-0.4); BILIRUBIN,TOTAL 0.3 mg/dL (0.2-1.3); BLOOD UREA NITROGEN 16 mg/dL (7-20); CALCIUM 8.8 mg/dL (8.4-10.2); CARBON DIOXIDE 29 mmol/L (22-30); CHLORIDE 105 mmol/L (98-107); GLUCOSE 72 mg/dL (75-110); POTASSIUM 3.7 mmol/L (3.6-5.0); SODIUM 140.1 mmol/L (137-145); TOTAL PROTEIN 6.2 g/dL (6.3-8.2)
[2018-03-20] MEDS ORDERED: ONDANSETRON ODT 4 MG TAB (6 TAB/ER DISP) PO PRN (07:59)
[2018-03-20 08:40] LABS: APPEARANCE,URINE CLOUDY; BILIRUBIN,URINE NEGATIVE (NEGATIVE); CALCIUM OXALATE CRYSTALS,URINE TOO NUMEROUS TO CNT /HPF; COLOR,URINE YELLOW; GLUCOSE, URINE NEGATIVE (NEGATIVE); KETONES,URINE NEGATIVE (NEGATIVE); LEUKOCYTE ESTERASE,URINE NEGATIVE (NEGATIVE); NITRITE,URINE NEGATIVE (NEGATIVE); PROTEIN,URINE NEGATIVE (NEGATIVE); URINE SPECIFIC GRAVITY 1.031
[2018-03-20 09:21] VITALS: BP 104/52
== END 2018-03-20 09:37 | disposition home or self-care (01) ==
LOC: ER 04:37
DX: R11.2 Nausea with vomiting, unspecified (principal); R10.9 Unspecified abdominal pain; R19.7 Diarrhea, unspecified; R68.83 Chills (without fever); F17.210 Nicotine dependence, cigarettes, uncomplicated; Z88.0 Allergy status to penicillin; Z87.892 Personal history of anaphylaxis; Z91.030 Bee allergy status
CPT/HCPCS: 99284; 96360; 96361; 36415; 81025; 80053; 81001; S0119; J7030

== ENCOUNTER 2018-07-13 03:57 | Emergency (ER) | payer MEDICAID ==
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
[2018-07-13 08:03] LABS: APPEARANCE,URINE CLOUDY; BILIRUBIN,URINE NEGATIVE (NEGATIVE); COLOR,URINE YELLOW; GLUCOSE, URINE NEGATIVE (NEGATIVE); KETONES,URINE NEGATIVE (NEGATIVE); LEUKOCYTE ESTERASE,URINE TRACE (NEGATIVE); NITRITE,URINE NEGATIVE (NEGATIVE); PROTEIN,URINE NEGATIVE (NEGATIVE); URINE SPECIFIC GRAVITY 1.024; UROBILINOGEN,URINE NEGATIVE mg/dL (<2.0)
[2018-07-13 09:02] LABS: CHLAM PCR NOT DETECTED (NOT DETECT); GON PCR NOT DETECTED (NOT DETECT)
== END 2018-07-13 08:36 | disposition home or self-care (01) ==
LOC: ER 03:57
DX: Z71.1 Person with feared health complaint in whom no diagnosis is made (principal)
CPT/HCPCS: 81001; 81025; 87491; 87591; 99283

== ENCOUNTER 2018-07-17 21:45 | Emergency (ER) | payer MEDICAID ==
[2018-07-17 21:57] VITALS: BP 99/62
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
== END 2018-07-17 22:15 | disposition home or self-care (01) ==
LOC: ER 21:45
DX: Z71.1 Person with feared health complaint in whom no diagnosis is made (principal); F17.200 Nicotine dependence, unspecified, uncomplicated
CPT/HCPCS: 99281

== ENCOUNTER 2018-07-28 20:15 | Emergency (ER) | payer MEDICAID ==
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
[2018-07-29 01:30] LABS: ABSOLUTE BASOPHILS # (AUTO) 0.1 10^3/uL (0.0-0.2); ABSOLUTE EOSINOPHILS # (AUTO) 0.1 10^3/uL (0.0-0.6); ABSOLUTE LYMPHOCYTES (AUTO) 1.5 10^3/uL (0.5-4.7); ABSOLUTE MONOCYTES (AUTO) 0.5 10^3/uL (0.1-1.4); ABSOLUTE NEUT (AUTO) 2.7 10^3/uL (1.7-8.2); BASOPHILS % (AUTO) 1.3 % (0-2); EOSINOPHILS % (AUTO) 2.6 % (0-6); HEMATOCRIT 37.5 % (36.0-47.0); HEMOGLOBIN 12.5 g/dL (12.0-15.5); LYMPHOCYTES % (AUTO) 30.9 % (13-45); MEAN CORPUSCULAR HEMOGLOBIN 28.9 pg (27.0-33.4); MEAN CORPUSCULAR HGB CONC 33.3 g/dL (32.0-36.0); MEAN CORPUSCULAR VOLUME 87 fl (80-97); MONOCYTES % (AUTO) 10.8 % (3-13); PLATELET COUNT 170 10^3/uL (150-450); RED BLOOD COUNT 4.32 10^6/uL (3.72-5.28); RED CELL DISTRIBUTION WIDTH 13.8 % (11.5-14.0); SEGMENTED NEUTROPHILS % (AUTO) 54.4 % (42-78); TOTAL CELLS COUNTED % (AUTO) 100 %; WHITE BLOOD COUNT 4.9 10^3/uL (4.0-10.5)
[2018-07-29 01:46] LABS: ALANINE AMINOTRANSFERASE 40 U/L (9-52); ALBUMIN 3.9 g/dL (3.5-5.0); ALKALINE PHOSPHATASE 51 U/L (38-126); ANION GAP 9 (5-19); ASPARTATE AMINO TRANSFERASE 22 U/L (14-36); BILIRUBIN,DIRECT 0.2 mg/dL (0.0-0.4); BILIRUBIN,TOTAL 0.5 mg/dL (0.2-1.3); BLOOD UREA NITROGEN 15 mg/dL (7-20); CALCIUM 9.4 mg/dL (8.4-10.2); CARBON DIOXIDE 27 mmol/L (22-30); CHLORIDE 105 mmol/L (98-107); GLUCOSE 92 mg/dL (75-110); POTASSIUM 3.7 mmol/L (3.6-5.0); SODIUM 141.4 mmol/L (137-145); TOTAL PROTEIN 6.6 g/dL (6.3-8.2)
[2018-07-29 01:47] LABS: ACETAMINOPHEN < 10 ug/mL (10-30); ALCOHOL < 10 mg/dL (NONE DETECTED); SALICYLATE < 1.0 mg/dL (2.0-20.0)
[2018-07-29 05:06] LABS: APPEARANCE,URINE CLOUDY; BILIRUBIN,URINE NEGATIVE (NEGATIVE); COLOR,URINE AMBER; GLUCOSE, URINE NEGATIVE (NEGATIVE); KETONES,URINE 20 mg/dL (NEGATIVE); LEUKOCYTE ESTERASE,URINE NEGATIVE (NEGATIVE); NITRITE,URINE NEGATIVE (NEGATIVE); PROTEIN,URINE NEGATIVE (NEGATIVE); URINE SPECIFIC GRAVITY 1.026; UROBILINOGEN,URINE NEGATIVE mg/dL (<2.0)
[2018-07-29 05:18] LABS: URINE BARBITURATES SCREEN NEGATIVE; URINE BENZODIAZEPINES SCREEN NEGATIVE; URINE COCAINE SCREEN NEGATIVE; URINE MARIJUANA (THC) SCREEN UNCONFIRMED POSITIVE; URINE METHADONE SCREEN NEGATIVE; URINE PHENCYCLIDINE SCREEN NEGATIVE
--- NOTE | 2018-07-29 07:38 | EKG REPORT ---
SEVERITY:- OTHERWISE NORMAL ECG - ECTOPIC ATRIAL RHYTHM : Confirmed by: Ehsan Hickey MD 29-Jul-2018 07:37:45
[2018-07-29] MEDS ORDERED: HALOPERIDOL 5 MG TABLET PO ONE (09:21)
--- NOTE | 2018-07-29 09:21 | ER Document Report ---
Doctor's Note Notes: 07/29/18 09:20 Patient was signed out to me at shift change. Valuation still complains of some thoughts of hurting herself. Has a long history in the past. We will give her a p.o. dose of Haldol. Waiting for psychiatric evaluation. Patient is a frequent visitor to the emergency department for same.
--- NOTE | 2018-07-29 09:48 | PSYCHOLOGICAL NOTE ---
Psych Note - Psych Note Date seen by psych provider: 07/29/18 Time seen by psych provider: 08:30 Psych Note: Patient is alert and orientated to person, place, time and circumstance. Mood is euthymic with congruent affect. Patient endorses passive suicidal ideation ie no plans, means or intent. She denies homicidal ideation. Delusions are absent behaviors congruent with an intact reality based presentation i.e. organized and linear thought process. Eye contact is fair. Conversational speech is within normal tone and prosody wit slightly delayed rate. Intellectual abilities appear to be within the average range. Attention and concentration are fair. Insight, judgment, impulse control are historically poor for this patient. No medication recommendations at this time Diagnosis: V60.0 ( Z59.0) Homelessness- Chronic 304.30 (F12.20) Cannabis Use Disorder, Severe 292.9 (F15.99) Unspecified Methamphetamine use disorder 296.80 (F31.9) Unspecified Bipolar and Related Disorder ( Per History, comprehensive chart review) Impression/Plan: Patient is cleared from acute psychiatric services. This patient is well-known to clinician and department. Historically, the patient's visits are primarily surrounding not having a place to sleep (well documented throughout patient chart identified by patient's self reports). Patient historically is noncompliant and has not followed previous recommendations to follow up with her provider, is not medication compliant, and utilizes emergency services for rides, a place to sleep, and food. Patient could benefit from basic case management/ social resources in the community, and symptoms meet criteria for an outpatient setting and non emergent. Patient has been here before with primary complaints of homelessness and/or reports passive suicidal ideation. 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 Dr. Cueva was consulted on the care and management of this patient; attending physician is in agreement of recommendations and disposition.
[2018-07-29 11:44] VITALS: BP 114/65
== END 2018-07-29 11:44 | disposition home or self-care (01) ==
LOC: ER 20:15
DX: F32.9 Major depressive disorder, single episode, unspecified (principal); R45.851 Suicidal ideations; F15.10 Other stimulant abuse, uncomplicated; K02.9 Dental caries, unspecified; Z59.0 Homelessness; Z91.018 Allergy to other foods; Z88.0 Allergy status to penicillin; Z87.892 Personal history of anaphylaxis; Z91.030 Bee allergy status
CPT/HCPCS: 93005; 99285; 36415; 80307 ×4; 85025; 80053; 81001; 93010; J3490

== ENCOUNTER 2018-09-01 08:05 | Emergency (ER) | payer MEDICAID, OTHER ==
[2018-09-01] MEDS ORDERED: OXYMETAZOLINE HCL 0.05% NASAL SPRAY 15 ML BOTTLE NASL ONE (09:32)
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
[2018-09-01 10:12] VITALS: BP 97/64
== END 2018-09-01 10:16 | disposition home or self-care (01) ==
LOC: ER 08:05
DX: R04.0 Epistaxis (principal); F17.200 Nicotine dependence, unspecified, uncomplicated
CPT/HCPCS: 99283; J3490

== ENCOUNTER 2018-09-21 02:53 | Emergency (ER) | payer MEDICAID ==
[2018-09-21 03:01] VITALS: BP 105/58
--- NOTE | 2018-09-21 06:53 | RADIOLOGY REPORT (SQ) ---
EXAM DESCRIPTION: XR CHEST 2 VIEWS COMPLETED DATE/TME: 09/21/2018 00:00 CLINICAL HISTORY: 33 years, Female, coughing up blood Comparison: None FINDINGS: No focal lung consolidation. No pleural effusion. No pneumothorax. Cardiac and mediastinal silhouette is unremarkable. No acute osseous abnormality. Old appearing displaced left clavicle fracture. Soft tissues are unremarkable. IMPRESSION: No acute findings. No focal lung consolidation.
--- NOTE | 2018-09-21 08:33 | ER Document Report ---
Doctor's Note Notes: 09/21/18 08:32 I attempted to go see the Pt. at this time. No one is in the room. will attempt to enter pt room again. 09/21/18 08:56 RN notifies me Pt. has left the ED. I did not see the Pt.
== END 2018-09-21 08:48 | disposition left against medical advice (07) ==
LOC: ER 02:53
DX: Z53.21 Procedure and treatment not carried out due to patient leaving prior to being seen by health care provider (principal)
CPT/HCPCS: 71046

== ENCOUNTER 2019-01-15 04:56 | Emergency (ER) | payer MEDICAID ==
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
[2019-01-15 05:29] VITALS: BP 114/69
[2019-01-15] MEDS ORDERED: ACETAMINOPHEN 325 MG TABLET PO ONE (05:57)
[2019-01-15] MEDS ORDERED: CEPHALEXIN 500 MG CAPSULE PO ONE (05:58)
--- NOTE | 2019-01-15 08:04 | EKG REPORT ---
SEVERITY:- OTHERWISE NORMAL ECG - SINUS TACHYCARDIA : Confirmed by: Ehsan Hickey MD 15-Jan-2019 08:04:24
== END 2019-01-15 06:46 | disposition home or self-care (01) ==
LOC: ER 04:56
DX: R07.89 Other chest pain (principal); L03.115 Cellulitis of right lower limb; S91.311D Laceration without foreign body, right foot, subsequent encounter; V09.9XXD Pedestrian injured in unspecified transport accident, subsequent encounter; Z98.890 Other specified postprocedural states; F17.200 Nicotine dependence, unspecified, uncomplicated
CPT/HCPCS: 93005; 99283; 93010; J3490

== ENCOUNTER 2019-02-18 21:16 | Emergency (ER) | payer MEDICAID, OTHER ==
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
[2019-02-18 22:59] LABS: ABSOLUTE BASOPHILS # (AUTO) 0.1 10^3/uL (0.0-0.2); ABSOLUTE EOSINOPHILS # (AUTO) 0.4 10^3/uL (0.0-0.6); ABSOLUTE MONOCYTES (AUTO) 0.7 10^3/uL (0.1-1.4); ABSOLUTE NEUT (AUTO) 4.9 10^3/uL (1.7-8.2); BASOPHILS % (AUTO) 0.7 % (0-2); EOSINOPHILS % (AUTO) 4.5 % (0-6); HEMATOCRIT 35.3 % (36.0-47.0); HEMOGLOBIN 11.4 g/dL (12.0-15.5); LYMPHOCYTES % (AUTO) 25.2 % (13-45); MEAN CORPUSCULAR HEMOGLOBIN 29.9 pg (27.0-33.4); MEAN CORPUSCULAR HGB CONC 32.4 g/dL (32.0-36.0); MEAN CORPUSCULAR VOLUME 92 fl (80-97); MONOCYTES % (AUTO) 8.6 % (3-13); PLATELET COUNT 212 10^3/uL (150-450); RED BLOOD COUNT 3.83 10^6/uL (3.72-5.28); RED CELL DISTRIBUTION WIDTH 16.1 % (11.5-14.0); TOTAL CELLS COUNTED % (AUTO) 100 %
[2019-02-18 23:13] LABS: ALBUMIN 3.5 g/dL (3.5-5.0); ALKALINE PHOSPHATASE 70 U/L (38-126); ANION GAP 8 (5-19); ASPARTATE AMINO TRANSFERASE 20 U/L (14-36); BILIRUBIN,DIRECT 0.1 mg/dL (0.0-0.4); BILIRUBIN,TOTAL 0.2 mg/dL (0.2-1.3); BLOOD UREA NITROGEN 15 mg/dL (7-20); CARBON DIOXIDE 28 mmol/L (22-30); CHLORIDE 104 mmol/L (98-107); GLUCOSE 84 mg/dL (75-110); POTASSIUM 3.5 mmol/L (3.6-5.0); TOTAL PROTEIN 6.2 g/dL (6.3-8.2)
[2019-02-18 23:15] LABS: ACETAMINOPHEN < 10 ug/mL (10-30); ALCOHOL < 10 mg/dL (NONE DETECTED); SALICYLATE < 1.0 mg/dL (2.0-20.0)
[2019-02-18 23:20] LABS: URINE AMPHETAMINES SCREEN NEGATIVE; URINE BARBITURATES SCREEN NEGATIVE; URINE BENZODIAZEPINES SCREEN NEGATIVE; URINE COCAINE SCREEN NEGATIVE; URINE METHADONE SCREEN NEGATIVE; URINE PHENCYCLIDINE SCREEN NEGATIVE
[2019-02-18 23:21] LABS: APPEARANCE,URINE SLIGHTLY-CLOUDY; BILIRUBIN,URINE NEGATIVE (NEGATIVE); CALCIUM OXALATE CRYSTALS,URINE TOO NUMEROUS TO CNT /HPF; COLOR,URINE YELLOW; GLUCOSE, URINE NEGATIVE (NEGATIVE); KETONES,URINE NEGATIVE (NEGATIVE); LEUKOCYTE ESTERASE,URINE NEGATIVE (NEGATIVE); NITRITE,URINE NEGATIVE (NEGATIVE); PROTEIN,URINE 30 mg/dL (NEGATIVE)
[2019-02-18 23:26] LABS: URINE MARIJUANA (THC) SCREEN UNCONFIRMED POSITIVE
--- NOTE | 2019-02-18 23:28 | RADIOLOGY REPORT (SQ) ---
EXAM DESCRIPTION: XR FEMUR 2 VIEWS COMPLETED DATE/TME: 02/18/2019 22:19 CLINICAL HISTORY: 33 years, Female, Rt femur pain s/p fall, prev surgery hx COMPARISON: None. NUMBER OF VIEWS: Four TECHNIQUE: Frontal and lateral radiograph were obtained LIMITATIONS: None. FINDINGS: Visualized are postoperative changes of stabilization of comminuted proximal femoral fracture with intramedullary kieran and associated screws. The superior most screw appears retracted, and is now mostly located within the soft tissues of the lateral aspect of the proximal thigh. Superimposed periprosthetic lucency is noted within the portion of the screw that remains within the greater trochanter. In addition, there is suspected lucency surrounding the interlocking screws about the distal aspect of the intramedullary kieran. No additional osseous anomalies. IMPRESSION: Postsurgical changes of stabilization of comminuted fracture involving the proximal right femur, as above described. The superiormost screw and association with intramedullary kieran has retracted into the soft tissues about the lateral aspect of the thigh, indicating hardware failure. Likewise, the distal interlocking screws about the intramedullary kirean demonstrate periprosthetic lucency, suspicious for hardware loosening. copyright 2010 [employer]- All Rights Reserved
[2019-02-19 08:54] VITALS: BP 95/49
--- NOTE | 2019-02-19 12:01 | EKG REPORT ---
SEVERITY:- NORMAL ECG - SINUS RHYTHM : Confirmed by: Inge Marquez MD 19-Feb-2019 12:01:18
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
== END 2019-02-19 10:17 | disposition home or self-care (01) ==
LOC: ER 21:16
DX: T85.698A Other mechanical complication of other specified internal prosthetic devices, implants and grafts, initial encounter (principal); S72.91XD Unspecified fracture of right femur, subsequent encounter for closed fracture with routine healing; M79.604 Pain in right leg; F32.9 Major depressive disorder, single episode, unspecified; W19.XXXA Unspecified fall, initial encounter; Z59.0 Homelessness
CPT/HCPCS: 36415; 80053; 80307; 81001; 84703; 85025; 93005; 93010; 99284

== ENCOUNTER 2019-04-23 03:09 | Emergency (ER) | payer MEDICAID ==
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
[2019-04-23 05:15] VITALS: BP 107/76
== END 2019-04-23 05:00 | disposition home or self-care (01) ==
LOC: ER 03:09
DX: Z48.02 Encounter for removal of sutures (principal); L53.9 Erythematous condition, unspecified; M25.551 Pain in right hip; M79.671 Pain in right foot; M79.651 Pain in right thigh; F17.200 Nicotine dependence, unspecified, uncomplicated; F12.10 Cannabis abuse, uncomplicated; F15.10 Other stimulant abuse, uncomplicated

== ENCOUNTER 2019-05-01 20:58 | Emergency (ER) | payer MEDICAID ==
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
[2019-05-01 22:35] LABS: ABSOLUTE BASOPHILS # (AUTO) 0.1 10^3/uL (0.0-0.2); ABSOLUTE EOSINOPHILS # (AUTO) 0.4 10^3/uL (0.0-0.6); ABSOLUTE LYMPHOCYTES (AUTO) 2.6 10^3/uL (0.5-4.7); ABSOLUTE MONOCYTES (AUTO) 0.7 10^3/uL (0.1-1.4); ABSOLUTE NEUT (AUTO) 4.8 10^3/uL (1.7-8.2); EOSINOPHILS % (AUTO) 4.8 % (0-6); HEMATOCRIT 40.4 % (36.0-47.0); HEMOGLOBIN 13.3 g/dL (12.0-15.5); MEAN CORPUSCULAR HEMOGLOBIN 28.9 pg (27.0-33.4); MEAN CORPUSCULAR VOLUME 87 fl (80-97); MONOCYTES % (AUTO) 7.9 % (3-13); PLATELET COUNT 180 10^3/uL (150-450); RED BLOOD COUNT 4.62 10^6/uL (3.72-5.28); RED CELL DISTRIBUTION WIDTH 14.5 % (11.5-14.0); SEGMENTED NEUTROPHILS % (AUTO) 56.3 % (42-78); TOTAL CELLS COUNTED % (AUTO) 100 %; WHITE BLOOD COUNT 8.6 10^3/uL (4.0-10.5)
[2019-05-01 22:57] LABS: ALBUMIN 4.3 g/dL (3.5-5.0); ALKALINE PHOSPHATASE 75 U/L (38-126); ANION GAP 6 (5-19); ASPARTATE AMINO TRANSFERASE 19 U/L (14-36); BILIRUBIN,TOTAL 0.3 mg/dL (0.2-1.3); BLOOD UREA NITROGEN 15 mg/dL (7-20); CALCIUM 8.9 mg/dL (8.4-10.2); CARBON DIOXIDE 31 mmol/L (22-30); CHLORIDE 100 mmol/L (98-107); POTASSIUM 3.8 mmol/L (3.6-5.0); TOTAL PROTEIN 7.1 g/dL (6.3-8.2)
[2019-05-01 22:58] LABS: ACETAMINOPHEN < 10 ug/mL (10-30); ALCOHOL < 10 mg/dL (NONE DETECTED); SALICYLATE < 1.0 mg/dL (2.0-20.0)
[2019-05-01 22:59] LABS: GLUCOSE 66 mg/dL (75-110)
[2019-05-01 23:37] LABS: URINE AMPHETAMINES SCREEN NEGATIVE; URINE BARBITURATES SCREEN NEGATIVE; URINE BENZODIAZEPINES SCREEN NEGATIVE; URINE COCAINE SCREEN NEGATIVE; URINE MARIJUANA (THC) SCREEN NEGATIVE; URINE METHADONE SCREEN NEGATIVE; URINE PHENCYCLIDINE SCREEN NEGATIVE
[2019-05-02 00:55] LABS: CHLAM PCR NOT DETECTED (NOT DETECT)
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
[2019-05-02 07:44] LABS: APPEARANCE,URINE SLIGHTLY-CLOUDY; BILIRUBIN,URINE NEGATIVE (NEGATIVE); COLOR,URINE YELLOW; GLUCOSE, URINE NEGATIVE (NEGATIVE); KETONES,URINE NEGATIVE (NEGATIVE); LEUKOCYTE ESTERASE,URINE NEGATIVE (NEGATIVE); NITRITE,URINE NEGATIVE (NEGATIVE); PROTEIN,URINE NEGATIVE (NEGATIVE); URINE SPECIFIC GRAVITY 1.014; UROBILINOGEN,URINE NEGATIVE mg/dL (<2.0)
--- NOTE | 2019-05-02 09:46 | PSYCHOLOGICAL NOTE ---
Psych Note - Psych Note Date seen by psych provider: 05/02/19 Time seen by psych provider: 08:30 Psych Note: Reason for Consult: suicidal ideation Patient reports that she called [facility] because of her anxiety. She states that after she spoke with the evening attending provider she felt much better. She reports that she is not having any issues with her anxiety now. She denies any thoughts of wanting to harm herself and denies making any comments. Patient states that her depression has been getting better. She denies being on current medications for mental health. She reports she has a provider through [facility]. She denies current homelessness however only reports that she is staying down in [place]. Patient asks if she will still be able to have breakfast. Patient states she has no further complaints at this time. Patient is alert and orientated to person, place, time and circumstance. Mood is euthymic with congruent affect. Patient denies current but endorsed passive suicidal ideation ie no plans, means or intent prior to arrival. She denies homicidal ideation. Delusions are absent behaviors congruent with an intact reality based presentation i.e. organized and linear thought process. Eye contact is fair. Conversational speech is within normal tone and prosody wit slightly delayed rate. Intellectual abilities appear to be within the average range. Attention and concentration are fair. Insight, judgment, impulse control are historically poor for this patient. Diagnosis: V60.0 ( Z59.0) Homelessness- Chronic 304.30 (F12.20) Cannabis Use Disorder, Severe 292.9 (F15.99) Unspecified Methamphetamine use disorder 296.80 (F31.9) Unspecified Bipolar and Related Disorder ( Per History, comprehensive chart review) Impression/Plan: Patient is cleared from acute psychiatric services. This patient is well-known to clinician and department. Historically, the patient's visits are primarily surrounding not having a place to sleep (well documented throughout patient chart identified by patient's self reports). Patient historically is noncompliant and has not followed previous recommendations to follow up with her provider, is not medication compliant, and utilizes emergency services for rides, a place to sleep, and food. Patient could benefit from basic case management/ social resources in the community, and symptoms meet criteria for an outpatient setting and non emergent. Patient has been here before with primary complaints of homelessness and/or reports passive suicidal ideation. Today, the patient denies wanting to harm herself or others and states she came to [facility] ED becuase of a panic attack. She denies any further complaints and is requesting to discharge, after breakfast arrives. Patient's outpatient provider is [facility] and reports she can do a walk-in for services. Dr. Cueva was consulted on the care and management of this patient; attending physician is in agreement of recommendations and disposition.
--- NOTE | 2019-05-02 09:58 | ER Document Report ---
Doctor's Note Notes: 05/02/19 09:57 Patient rounded on chart reviewed 05/02/19 10:03 Patient sleeping arouses easily. No distress. Denies suicidal or homicidal ideations at this time. Patient instructed she will be discharged at this time. Verbalized understanding. PHYSICAL EXAMINATION: GENERAL: no acute distress HEAD: Atraumatic, normocephalic. EYES: extraocular movements intact, sclera anicteric, conjunctiva are normal. ENT: nares patent, Moist mucous membranes. NECK: Normal range of motion, supple LUNGS: Respiratory rate even unlabored HEART: Regular rate EXTREMITIES: Normal range of motion, NEUROLOGICAL: Cranial nerves grossly intact. PSYCH: Normal mood, normal affect. calm SKIN: Warm, Dry, normal turgor, no rashes or lesions noted 05/02/19 Patient discharged without incident
[2019-05-02 10:15] VITALS: BP 108/64
--- NOTE | 2019-05-02 11:29 | EKG REPORT ---
SEVERITY:- NORMAL ECG - SINUS RHYTHM : Confirmed by: Gloria Starr 02-May-2019 11:29:13
== END 2019-05-02 10:15 | disposition home or self-care (01) ==
LOC: ER 20:58
DX: F32.9 Major depressive disorder, single episode, unspecified (principal); R45.851 Suicidal ideations; Z59.0 Homelessness; F12.20 Cannabis dependence, uncomplicated; F15.99 Other stimulant use, unspecified with unspecified stimulant-induced disorder; F41.9 Anxiety disorder, unspecified; F17.210 Nicotine dependence, cigarettes, uncomplicated
CPT/HCPCS: 36415; 80053; 80307; 81001; 82962; 84703; 85025; 87491; 87591; 93005; 93010; 99285

== ENCOUNTER 2019-06-11 01:27 | Emergency (ER) | payer MEDICAID ==
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
--- NOTE | 2019-06-11 02:40 | RADIOLOGY REPORT (SQ) ---
EXAM DESCRIPTION: XR CHEST 1 VIEW COMPLETED DATE/TME: 06/11/2019 01:55 CLINICAL HISTORY: 34 years, Female, cough COMPARISON: 09/21/2018 NUMBER OF VIEWS: One TECHNIQUE: AP view of the chest LIMITATIONS: None. FINDINGS: The lungs are clear. The heart is normal in size. There is no pneumothorax or pleural effusion. There is no acute fracture. IMPRESSION: No acute cardiopulmonary abnormality copyright 2010 [employer]- All Rights Reserved
[2019-06-11 03:04] LABS: A TYPE INFLUENZA AG NEGATIVE (NEGATIVE); B INFLUENZA AG NEGATIVE (NEGATIVE)
[2019-06-11 04:54] VITALS: BP 99/58
== END 2019-06-11 04:15 | disposition home or self-care (01) ==
LOC: ER 01:27
DX: R05 Cough (principal); R06.7 Sneezing; R19.7 Diarrhea, unspecified; Z91.018 Allergy to other foods; Z88.0 Allergy status to penicillin; Z87.892 Personal history of anaphylaxis; Z91.030 Bee allergy status; Z87.01 Personal history of pneumonia (recurrent)
CPT/HCPCS: 36415; 71045; 87635; 87804; 99283

== ENCOUNTER 2019-06-23 19:12 | Emergency (ER) | payer MEDICAID ==
[2019-06-23 19:55] VITALS: BP 89/48
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
[2019-06-23 20:30] LABS: BACTERIA (WET MOUNT) 3+ BACTERIA SEEN; EPITHELIALS (WET MOUNT) 3+ EPITHELIALS SEEN; T.VAGINALIS (WET MOUNT) NO TRICHOMONAS SEEN; WBCS (WET MOUNT) 1+ WBCS SEEN; YEAST (WET MOUNT) YEAST SEEN
[2019-06-23] MEDS ORDERED: FLUCONAZOLE 100 MG TABLET PO ONE (21:03)
== END 2019-06-23 21:19 | disposition home or self-care (01) ==
LOC: ER 19:12
DX: B37.3 Candidiasis of vulva and vagina (principal); N89.8 Other specified noninflammatory disorders of vagina; F17.200 Nicotine dependence, unspecified, uncomplicated; Z88.0 Allergy status to penicillin; Z91.030 Bee allergy status; Z86.14 Personal history of Methicillin resistant Staphylococcus aureus infection
CPT/HCPCS: 99283; 87210; J3490

== ENCOUNTER 2019-09-02 12:51 | Emergency (ER) | payer MEDICAID ==
[2019-09-02 12:57] VITALS: BP 107/58
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
[2019-09-02 14:39] LABS: ABSOLUTE EOSINOPHILS # (AUTO) 0.3 10^3/uL (0.0-0.6); ABSOLUTE LYMPHOCYTES (AUTO) 1.4 10^3/uL (0.5-4.7); ABSOLUTE MONOCYTES (AUTO) 0.8 10^3/uL (0.1-1.4); ABSOLUTE NEUT (AUTO) 5.8 10^3/uL (1.7-8.2); BASOPHILS % (AUTO) 0.5 % (0-2); EOSINOPHILS % (AUTO) 3.6 % (0-6); HEMATOCRIT 36.2 % (36.0-47.0); HEMOGLOBIN 12.6 g/dL (12.0-15.5); LYMPHOCYTES % (AUTO) 17.1 % (13-45); MEAN CORPUSCULAR HEMOGLOBIN 30.3 pg (27.0-33.4); MEAN CORPUSCULAR HGB CONC 34.7 g/dL (32.0-36.0); MEAN CORPUSCULAR VOLUME 87 fl (80-97); MONOCYTES % (AUTO) 10.1 % (3-13); PLATELET COUNT 214 10^3/uL (150-450); RED BLOOD COUNT 4.14 10^6/uL (3.72-5.28); RED CELL DISTRIBUTION WIDTH 13.7 % (11.5-14.0); SEGMENTED NEUTROPHILS % (AUTO) 68.7 % (42-78); TOTAL CELLS COUNTED % (AUTO) 100 %; WHITE BLOOD COUNT 8.4 10^3/uL (4.0-10.5)
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
--- NOTE | 2019-09-02 14:51 | RADIOLOGY REPORT (SQ) ---
EXAM DESCRIPTION: U/S OB 14+ TA/1 GEST W/DOPPLER IMAGES COMPLETED DATE/TIME: 09/02/2019 2:39 pm REASON FOR STUDY: lower abdominal pain COMPARISON: None. TECHNIQUE: Static and Dynamic grayscale imaging performed of gravid uterus using transabdominal appr oach. Additional selected color Doppler and spectral images recorded. All stored on PACS. LIMITATIONS: None. FINDINGS: FETUSES SEEN:1 EGA: 17 weeks 3 days Calculated using BPD,FL,HC,AC documented on images. No discrepancy with clinica l dates. TUAN: 02/07/2020 EFW: 199 grams PERCENTILE: Not applicable. Fetus less than or equal to 20 weeks gestation. LVP: 2.8 cm PLACENTA: Posterior. PRESENTATION: Transverse. ANATOMY: HEART RATE: 168 beats per minute. FOUR CHAMBER HEART: Not evaluated THREE VESSEL CORD: Not evaluated CORD INSERTION: Not evaluated KIDNEYS AND BLADDER: Not evaluated STOMACH: Visualized. Appears normal. SPINE: Not evaluated BRAIN AND LATERAL VENTRICLES: Lateral ventricles not seen. Normal brain as visualized. OTHER: No other significant finding. MATERNAL ADNEXA: Maternal ovaries not visualized. CERVICAL LENGTH: 3.1 Closed. OTHER: No other significant finding. IMPRESSION: LIVING INTRAUTERINE . ESTIMATED GESTATIONAL AGE 17 weeks 3 days NO VISUALIZED ANOMALIES. Trimester of : Second trimester - 13 weeks 1 day to 27 weeks 6 days. TECHNICAL DOCUMENTATION: JOB ID: [id number] 2010 [employer]- All Rights Reserved Reading location - IP/workstation name: [email or web address]
[2019-09-02 14:58] LABS: ALBUMIN 3.3 g/dL (3.5-5.0); ALKALINE PHOSPHATASE 61 U/L (38-126); ASPARTATE AMINO TRANSFERASE 18 U/L (14-36); BILIRUBIN,TOTAL 0.2 mg/dL (0.2-1.3); BLOOD UREA NITROGEN 14 mg/dL (7-20); CALCIUM 8.9 mg/dL (8.4-10.2); GLUCOSE 84 mg/dL (75-110); POTASSIUM 4.3 mmol/L (3.6-5.0); TOTAL PROTEIN 6.4 g/dL (6.3-8.2)
[2019-09-02 15:04] LABS: CARBON DIOXIDE 29 mmol/L (22-30); CHLORIDE 103 mmol/L (98-107)
[2019-09-02 15:17] LABS: ANION GAP 4 (5-19)
== END 2019-09-02 15:44 | disposition home or self-care (01) ==
LOC: ER 12:51
DX: O26.892 Other specified pregnancy related conditions, second trimester (principal); R10.9 Unspecified abdominal pain; O99.332 Smoking (tobacco) complicating pregnancy, second trimester; Z3A.17 17 weeks gestation of pregnancy; Z88.0 Allergy status to penicillin; Z88.8 Allergy status to other drugs, medicaments and biological substances
CPT/HCPCS: 36415; 76805; 80053; 84702; 85025; 93976; 99284

== ENCOUNTER 2019-09-15 04:16 | Emergency (ER) | payer MEDICAID ==
[2019-09-15 05:07] LABS: ABSOLUTE BASOPHILS # (AUTO) 0.1 10^3/uL (0.0-0.2); ABSOLUTE EOSINOPHILS # (AUTO) 0.2 10^3/uL (0.0-0.6); ABSOLUTE LYMPHOCYTES (AUTO) 1.5 10^3/uL (0.5-4.7); ABSOLUTE MONOCYTES (AUTO) 0.9 10^3/uL (0.1-1.4); ABSOLUTE NEUT (AUTO) 7.8 10^3/uL (1.7-8.2); BASOPHILS % (AUTO) 0.7 % (0-2); EOSINOPHILS % (AUTO) 2.1 % (0-6); HEMATOCRIT 34.4 % (36.0-47.0); HEMOGLOBIN 12.1 g/dL (12.0-15.5); LYMPHOCYTES % (AUTO) 14.4 % (13-45); MEAN CORPUSCULAR HEMOGLOBIN 30.1 pg (27.0-33.4); MEAN CORPUSCULAR HGB CONC 35.2 g/dL (32.0-36.0); MEAN CORPUSCULAR VOLUME 86 fl (80-97); MONOCYTES % (AUTO) 8.8 % (3-13); PLATELET COUNT 216 10^3/uL (150-450); RED BLOOD COUNT 4.02 10^6/uL (3.72-5.28); RED CELL DISTRIBUTION WIDTH 13.9 % (11.5-14.0); TOTAL CELLS COUNTED % (AUTO) 100 %; WHITE BLOOD COUNT 10.6 10^3/uL (4.0-10.5)
[2019-09-15 05:17] LABS: APPEARANCE,URINE CLOUDY; BILIRUBIN,URINE NEGATIVE (NEGATIVE); COLOR,URINE YELLOW; GLUCOSE, URINE NEGATIVE (NEGATIVE); KETONES,URINE NEGATIVE (NEGATIVE); LEUKOCYTE ESTERASE,URINE LARGE (NEGATIVE); NITRITE,URINE NEGATIVE (NEGATIVE); PROTEIN,URINE NEGATIVE (NEGATIVE); URINE SPECIFIC GRAVITY 1.023; UROBILINOGEN,URINE NEGATIVE mg/dL (<2.0)
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
[2019-09-15 05:46] LABS: ALBUMIN 3.4 g/dL (3.5-5.0); ALKALINE PHOSPHATASE 62 U/L (38-126); ANION GAP 6 (5-19); ASPARTATE AMINO TRANSFERASE 20 U/L (14-36); BILIRUBIN,TOTAL 0.3 mg/dL (0.2-1.3); BLOOD UREA NITROGEN 15 mg/dL (7-20); CALCIUM 9.3 mg/dL (8.4-10.2); CARBON DIOXIDE 25 mmol/L (22-30); CHLORIDE 104 mmol/L (98-107); GLUCOSE 93 mg/dL (75-110); POTASSIUM 4.1 mmol/L (3.6-5.0); TOTAL PROTEIN 6.5 g/dL (6.3-8.2)
[2019-09-15] MEDS ORDERED: NITROFURANTOIN MONOHYD/M-CRYST 100 MG CAPSULE PO ONE (06:19)
--- NOTE | 2019-09-15 06:22 | RADIOLOGY REPORT (SQ) ---
EXAM: US , Limited EXAM DATE/TIME: 09/15/2019 5:30 AM CLINICAL HISTORY: The patient is 34 years old and is Female; vaginal bleeding, pain, 18 weeks TECHNIQUE: Real-time limited ultrasound of the maternal uterus with image documentation. COMPARISON: OB ultrasound from 09/02/2019 FINDINGS: FETUS: Single intrauterine . GESTATIONAL AGE: Estimated gestational age on this ultrasound is 19 weeks 2 days. TUAN: TUAN by this ultrasound is 02/07/2020 EFW: Estimated weight is 289 g. BPD: BPD is 4.3 cm, corresponding 19 weeks 0 days HC: Head circumference is 16.4 cm, corresponding to 19 weeks 1 day AC: Abdominal circumference is 14.1 cm, corresponding to 19 weeks 3 days FL: Femur length is 3.0 cm, corresponding to 19 weeks 3 days POSITION: presentation was variable during the exam. HEART RATE: heart rate is 144 bpm. PLACENTA: The placenta is posterior. There is suggestion of at least partial placenta previa on some of the images. AMNIOTIC FLUID: Largest pocket of amniotic fluid measures 5.1 x 4.1 cm. CERVIX: The cervix is not well visualized secondary to artifact. The cervix appears closed and measures approximately 3.1 cm in length. IMPRESSION: 1. Single live intrauterine . 2. There is suggestion of placenta previa on some of the images. Recommend ultrasound follow-up.
[2019-09-15 06:55] VITALS: BP 109/67
== END 2019-09-15 06:55 | disposition home or self-care (01) ==
LOC: ER 04:16
DX: O23.42 Unspecified infection of urinary tract in pregnancy, second trimester (principal); O20.9 Hemorrhage in early pregnancy, unspecified; O44.02 Complete placenta previa NOS or without hemorrhage, second trimester; O26.892 Other specified pregnancy related conditions, second trimester; R10.31 Right lower quadrant pain; Z3A.18 18 weeks gestation of pregnancy; Z87.891 Personal history of nicotine dependence; Z91.018 Allergy to other foods; Z88.0 Allergy status to penicillin; Z87.892 Personal history of anaphylaxis; Z91.030 Bee allergy status
CPT/HCPCS: 99284; 86900; 86901; 36415; 87086; 85025; 80053; 81001; 76805; J3490; J8499

== ENCOUNTER 2019-11-10 12:09 | Emergency (ER) | payer MEDICAID ==
[2019-11-10 12:15] VITALS: BP 120/78
== END 2019-11-10 12:50 | disposition home or self-care (01) ==
LOC: ER 12:09
DX: Z53.21 Procedure and treatment not carried out due to patient leaving prior to being seen by health care provider (principal); R10.2 Pelvic and perineal pain
CPT/HCPCS: 99281

== ENCOUNTER 2019-11-10 12:40 | Outpatient (CLI) | payer MEDICAID ==
[2019-11-10 14:06] LABS: ABSOLUTE EOSINOPHILS # (AUTO) 0.2 10^3/uL (0.0-0.6); ABSOLUTE LYMPHOCYTES (AUTO) 1.6 10^3/uL (0.5-4.7); ABSOLUTE MONOCYTES (AUTO) 0.8 10^3/uL (0.1-1.4); ABSOLUTE NEUT (AUTO) 8.7 10^3/uL (1.7-8.2); BASOPHILS % (AUTO) 0.4 % (0-2); EOSINOPHILS % (AUTO) 1.6 % (0-6); HEMATOCRIT 40.8 % (36.0-47.0); HEMOGLOBIN 13.9 g/dL (12.0-15.5); LYMPHOCYTES % (AUTO) 14.2 % (13-45); MEAN CORPUSCULAR HEMOGLOBIN 30.2 pg (27.0-33.4); MEAN CORPUSCULAR HGB CONC 34.1 g/dL (32.0-36.0); MEAN CORPUSCULAR VOLUME 89 fl (80-97); PLATELET COUNT 260 10^3/uL (150-450); RED BLOOD COUNT 4.59 10^6/uL (3.72-5.28); RED CELL DISTRIBUTION WIDTH 14.4 % (11.5-14.0); SEGMENTED NEUTROPHILS % (AUTO) 76.8 % (42-78); TOTAL CELLS COUNTED % (AUTO) 100 %; WHITE BLOOD COUNT 11.4 10^3/uL (4.0-10.5)
[2019-11-10 14:30] LABS: APPEARANCE,URINE CLOUDY; BILIRUBIN,URINE NEGATIVE (NEGATIVE); COLOR,URINE AMBER; GLUCOSE, URINE NEGATIVE (NEGATIVE); KETONES,URINE TRACE mg/dL (NEGATIVE); LEUKOCYTE ESTERASE,URINE LARGE (NEGATIVE); NITRITE,URINE NEGATIVE (NEGATIVE); PROTEIN,URINE 30 mg/dL (NEGATIVE); URINE SPECIFIC GRAVITY 1.029
[2019-11-10 14:42] LABS: URINE AMPHETAMINES SCREEN NEGATIVE; URINE BARBITURATES SCREEN NEGATIVE; URINE BENZODIAZEPINES SCREEN NEGATIVE; URINE COCAINE SCREEN NEGATIVE; URINE METHADONE SCREEN NEGATIVE; URINE PHENCYCLIDINE SCREEN NEGATIVE
[2019-11-10 14:45] LABS: BACTERIA (WET MOUNT) 3+ BACTERIA SEEN; EPITHELIALS (WET MOUNT) 3+ EPITHELIALS SEEN; RBCS (WET MOUNT) FEW RBCS SEEN; T.VAGINALIS (WET MOUNT) NO TRICHOMONAS SEEN; WBCS (WET MOUNT) 4+ WBCS SEEN; YEAST (WET MOUNT) NO YEAST SEEN
[2019-11-10 14:48] LABS: URINE MARIJUANA (THC) SCREEN UNCONFIRMED POSITIVE
--- NOTE | 2019-11-10 14:59 | RADIOLOGY REPORT (SQ) ---
EXAM DESCRIPTION: U/S OB LIMITED IMAGES COMPLETED DATE/TIME: 11/10/2019 2:14 pm REASON FOR STUDY: limited PNC, ?previa, FWB and placenta pleas COMPARISON: 09/15/2019 TECHNIQUE: Limited transabdominal grayscale ultrasound for evaluation of specific requested obstetri shweta parameters. LIMITATIONS: None. FINDINGS: CERVICAL LENGTH: 3 cm. Closed. GENE: 15.7 cm. . FHR: 152 beats per minute. PRESENTATION: Cephalic. PLACENTA: Posterior and slightly low-lying. The tip of the placenta is 2 cm from the cervix. ANATOMY: Not assessed OTHER: Intrauterine gestation of 27 weeks 4 days. IMPRESSION: LIMITED OBSTETRICAL ULTRASOUND WITH MEASURED PARAMETERS DELINEATED ABOVE. Trimester of : Second trimester - 13 weeks 1 day to 27 weeks 6 days. TECHNICAL DOCUMENTATION: JOB ID: [id number] [employer]- All Rights Reserved Reading location - IP/workstation name: [email or web address]
[2019-11-10] MEDS ORDERED: CEFTRIAXONE INJ 1000 MG VIAL IM ONE (15:29)
[2019-11-10] MEDS ORDERED: LIDOCAINE HCL 1% INJ (FOR 1 GM VIAL) INJ ONE (15:45)
[2019-11-10] MEDS ORDERED: CEFTRIAXONE INJ 1000 MG VIAL ONE (16:03)
[2019-11-10] MEDS ORDERED: LIDOCAINE 1% INJ-PF (10 MG/ML) 30 ML SDV ONE (16:07)
[2019-11-10 16:15] LABS: CHLAM PCR NOT DETECTED (NOT DETECT)
[2019-11-10] MEDS ORDERED: AZITHROMYCIN 250 MG TABLET PO ONE (16:22)
[2019-11-10] MEDS ORDERED: AZITHROMYCIN 250 MG TABLET ONE (16:28)
[2019-11-10 19:23] LABS: FREE T3 3.93 pg/mL (2.77-5.27); FREE T4 (FREE THYROXINE) 0.81 ng/dL (0.78-2.19)
== END 2019-11-10 18:14 | disposition home or self-care (01) ==
LOC: LC 12:40
PROVIDERS: ATTEND Student in an Organized Health Care Education/Training Program
DX: O23.42 Unspecified infection of urinary tract in pregnancy, second trimester (principal); O09.32 Supervision of pregnancy with insufficient antenatal care, second trimester; O98.212 Gonorrhea complicating pregnancy, second trimester; A54.9 Gonococcal infection, unspecified; Z3A.27 27 weeks gestation of pregnancy; Z88.0 Allergy status to penicillin
CPT/HCPCS: 59899; 86900; 86901; 36415; 84439; 87210; 86850; 84443; 85025; 86762; 86592; 81001; 87340; 86701; 80307; 84481; 87491; 87591; 86803; 86804; 76815; G0480 ×2; Q0144; J3490; J0696; 80349; 87086

== ENCOUNTER 2019-11-26 00:43 | Outpatient (CLI) | payer MEDICAID ==
[2019-11-26 01:29] LABS: AMORPHOUS SEDIMENT,URINE TRACE /HPF; APPEARANCE,URINE SLIGHTLY-CLOUDY; BILIRUBIN,URINE NEGATIVE (NEGATIVE); COLOR,URINE YELLOW; GLUCOSE, URINE NEGATIVE (NEGATIVE); KETONES,URINE NEGATIVE (NEGATIVE); LEUKOCYTE ESTERASE,URINE TRACE (NEGATIVE); NITRITE,URINE NEGATIVE (NEGATIVE); PROTEIN,URINE NEGATIVE (NEGATIVE); URINE SPECIFIC GRAVITY 1.019
[2019-11-26 01:43] LABS: URINE AMPHETAMINES SCREEN NEGATIVE; URINE BARBITURATES SCREEN NEGATIVE; URINE BENZODIAZEPINES SCREEN NEGATIVE; URINE COCAINE SCREEN NEGATIVE; URINE METHADONE SCREEN NEGATIVE; URINE PHENCYCLIDINE SCREEN NEGATIVE
[2019-11-26 01:53] LABS: URINE MARIJUANA (THC) SCREEN UNCONFIRMED POSITIVE
== END 2019-11-26 02:40 | disposition home or self-care (01) ==
LOC: LC 00:43
PROVIDERS: ATTEND Obstetrics & Gynecology
DX: O47.03 False labor before 37 completed weeks of gestation, third trimester (principal); Z3A.29 29 weeks gestation of pregnancy
CPT/HCPCS: 81001; 80307; 59899; G0480 ×2; 80349

== ENCOUNTER 2019-11-26 03:21 | Emergency (ER) | payer MEDICAID ==
[2019-11-26 03:28] VITALS: BP 104/68
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
== END 2019-11-26 07:09 | disposition left against medical advice (07) ==
LOC: ER 03:21
DX: O26.893 Other specified pregnancy related conditions, third trimester (principal); R53.1 Weakness; R42 Dizziness and giddiness; Z3A.29 29 weeks gestation of pregnancy; Z91.018 Allergy to other foods; Z88.0 Allergy status to penicillin; Z87.892 Personal history of anaphylaxis; Z91.030 Bee allergy status; Z53.20 Procedure and treatment not carried out because of patient's decision for unspecified reasons
CPT/HCPCS: 99281